=== PATIENT | male | born 1990 | race African-American/Black ===

== ENCOUNTER 2018-01-06 21:10 | Emergency (ER) | payer OTHER, MEDICAID ==
--- NOTE | 2018-01-06 22:30 | RADIOLOGY REPORT (SQ) ---
EXAM DESCRIPTION: WRIST RIGHT 3 VIEWS COMPLETED DATE/TIME: 01/06/2018 10:16 pm REASON FOR STUDY: pain x 2 months, no injury COMPARISON: None. NUMBER OF VIEWS: Three views. TECHNIQUE: AP, lateral, and oblique radiographic images acquired of the right wrist. LIMITATIONS: None. FINDINGS: MINERALIZATION: Normal. BONES: No acute fracture or dislocation. No worrisome bone lesions. Normal alignment. No significant osteophytes. JOINTS: No erosions. No lory-articular osteopenia. No chondrocalcinosis. SOFT TISSUES: No swelling. No calcifications. OTHER: No other significant finding. IMPRESSION: NEGATIVE STUDY OF THE RIGHT WRIST. NO EXPLANATION FOR PAIN. TECHNICAL DOCUMENTATION: JOB ID: [id number] [employer]- All Rights Reserved Reading location - IP/workstation name: [email or web address]
--- NOTE | 2018-01-06 22:45 | ER Document Report ---
ED Hand/Wrist Injury - General Chief Complaint: Wrist Pain Stated Complaint: SWOLLEN WRIST Time Seen by Provider: 01/06/18 22:01 Mode of Arrival: Ambulatory Information source: Patient TRAVEL OUTSIDE OF THE [place] IN LAST 30 DAYS: No - HPI Patient complains to provider of: right wrist pain Notes: Patient is here with complaints of right wrist pain for the last 2 months. States that the pain is worse with movement. Specifically when he flexes and extends his wrist. He denies any trauma or fall. He denies any numbness, tingling, weakness. He denies any fever. He denies any nausea, vomiting, diarrhea. No rash. He denies any specific repetitive movements. He denies any other complaints at this time. - Related Data Allergies/Adverse Reactions: No Known Allergies Allergy (Verified 11/04/15 17:22) Past Medical History - Social History Smoking Status: Unknown if Ever Smoked Family History: Arthritis, DM, Hypertension Musculoskeltal Medical History: Reports Hx Arthritis, Reports Hx Musculoskeletal Trauma Past Surgical History: Reports: Hx Orthopedic Surgery - Right knee medial meniscus repair/trimming - Immunizations Hx Diphtheria, Pertussis, Tetanus Vaccination: Yes Review of Systems - Review of Systems -: Yes All other systems reviewed and negative Physical Exam - Vital signs Vitals: Temp Pulse Resp BP Pulse Ox 98.0 F 88 20 168/97 H 93 01/06/18 21:31 01/06/18 21:31 01/06/18 21:31 01/06/18 21:31 01/06/18 21:31 - Notes Notes: GENERAL: alert, cooperative, nontoxic, no distress. HEAD: normocephalic, atraumatic EYES: conjunctiva pink without discharge, no external redness or swelling. EARS: no external swelling, no external redness NOSE: atraumatic, no external swelling MOUTH/THROAT: mucous membranes moist and pink NECK: soft, supple, full range of motion, no meningismus. CHEST: no distress, lungs clear and equal throughout. No wheezing, rales, rhonchi. CARDIAC: regular rate and rhythm, no murmur, normal capillary refill, normal pulses. BACK: full range of motion, no CVA tenderness. EXTREMITIES: Tenderness to the right distal radius with mild swelling noted over this area. The area is not red or hot to the touch. The patient has full range of motion of the wrist but with pain. Normal pulse and sensation. Normal cap refill. Full range of motion of the hand and fingers. Elbow exam is unremarkable. Compartments are soft. NEURO: alert and oriented 3, no focal deficits, full range of motion of all extremities. PYSCH: appropriate mood, affect. Patient is cooperative. SKIN: pink, warm, dry, no rash. Course - Re-evaluation Re-evalutation: 01/06/18 22:42 Patient is nontoxic appearing with stable vitals. Here with complaints of right wrist pain for the last 2 months. He is noted to have some mild swelling to the distal radius with tenderness along this area. It is not red or hot to the touch and he is not running a fever. There is no sign of infection. X-ray of the right wrist shows no acute bony abnormality. Patient's complaints and exam are consistent with tendinitis. This point the patient will be placed in a cock-up splint. He is already taking Naprosyn. Since the Naprosyn is not working, I have told him to stop taking the Naprosyn and we will switch him to Mobic to see if this helps with his pain and inflammation. He is instructed to wear the splint as needed for comfort. Rest, ice, elevate the wrist. Follow- up with orthopedics due to the chronicity of his pain. Follow-up sooner for increasing pain, fever, redness, numbness, tingling, weakness, any further concerns. The patient is noted to have elevated blood pressure during today's emergency department visit. The patient was informed of this finding. The patient was instructed that this may be related to pre-hypertension and requires further evaluation with a primary care provider. The patient has no hypertensive symptoms at this time. The patient's emergency department workup and current diagnosis were explained to the patient and or family. Follow-up instructions were provided. Medications if prescribed were discussed. Instructions for when to return to the emergency department including specific worrisome symptoms were discussed with the patient and/or family. - Vital Signs Vital signs: Temp Pulse Resp BP Pulse Ox 98.0 F 88 20 168/97 H 93 01/06/18 21:31 01/06/18 21:31 01/06/18 21:31 01/06/18 21:31 01/06/18 21:31 - Diagnostic Test Radiology reviewed: Image reviewed, Reports reviewed - Wrist with no acute abnormality Procedures - Immobilization right Wrist Pre-Proc Neuro Vasc Exam: Normal Immobilizer type: Cock-up Performed by: RN Post-Proc Neuro Vasc Exam: Normal Alignment checked and good: Yes Discharge - Discharge Clinical Impression: Right wrist tendonitis Condition: Stable Disposition: HOME, SELF-CARE Instructions: Tendonitis ([facility]) Additional Instructions: Take medications as prescribed. Stop taking her naproxen. Follow-up with orthopedics or your family doctor at the next available appointment. Follow-up sooner for worsening pain, fever, redness, numbness, tingling, weakness, any further concerns. Apply ice to the sore area and wear splint as needed for comfort. Your blood pressure was elevated during today's visit. Have this rechecked with your doctor. Prescriptions: Meloxicam 7.5 mg PO DAILY #15 tablet Forms: Elevated Blood Pressure, Smoking Cessation Education Referrals: MILKA MÁRQUEZ MD [ACTIVE STAFF] - Follow up as needed
[2018-01-06] MEDS ORDERED: IBUPROFEN 600 MG TABLET PO ONE (22:55)
[2018-01-06 23:05] VITALS: BP 142/85
== END 2018-01-06 23:07 | disposition home or self-care (01) ==
LOC: ER 21:10
DX: M77.9 Enthesopathy, unspecified (principal); M25.531 Pain in right wrist; M79.89 Other specified soft tissue disorders
CPT/HCPCS: 99283; 73110; L3908

== ENCOUNTER 2018-01-20 00:12 | Emergency (ER) | payer OTHER, MEDICAID ==
[2018-01-20] MEDS ORDERED: IPRATROPIUM/ALBUTEROL 0.5-2.5 MG/3 ML AMPUL NEB ONE (01:31)
[2018-01-20] MEDS ORDERED: DEXAMETHASONE SOD PHOS INJ 10 MG/1 ML VIAL IM ONE (01:31)
--- NOTE | 2018-01-20 01:34 | ER Document Report ---
HPI - HPI Pain Level: 3 Notes: Patient is a 27-year-old male with a history of depression who presents to the ED complaining of a dry semi-productive cough, nasal congestion/discharge, intermittent fever 3 weeks. Patient states that he is still eating and drinking without any difficulties. He is urinating normally and having normal bowel movements. He has tried some jvws-ojf-bojkvxo meds with minimal relief. Patient states that he does feel wheezy and does have some associated shortness of breath. He denies any drug allergies, smoking, IV drug use. Denies any prolonged immobilization, recent surgery/trauma, previous DVT/PE, cancer, or hormone use. He has no other concerns or complaints at this time. Denies any headache, fever, neck pain, sore throat, chest pain, palpitations, syncope, abdominal pain, nausea/vomiting/diarrhea, urinary retention, dysuria, hematuria , back pain, or rash. - ROS Systems Reviewed and Negative: Yes All other systems reviewed and negative Past Medical History - Social History Smoking Status: Never Smoker Family History: Arthritis, DM, Hypertension Renal/ Medical History: Denies: Hx Peritoneal Dialysis Musculoskeltal Medical History: Reports Hx Arthritis, Reports Hx Musculoskeletal Trauma Past Surgical History: Reports: Hx Orthopedic Surgery - Right knee medial meniscus repair/trimming - Immunizations Hx Diphtheria, Pertussis, Tetanus Vaccination: Yes Vertical Provider Document - CONSTITUTIONAL Agree With Documented VS: Yes Notes: PHYSICAL EXAMINATION: GENERAL: Well-appearing, well-nourished and in no acute distress. A&Ox4. Answers questions appropriately. Moves comfortably w/o notable distress. Able to speak in complete sentences. HEAD: Atraumatic, normocephalic. EYES: Pupils equal round and reactive to light, extraocular movements intact, sclera anicteric, conjunctiva are normal. ENT: EAC clear b/l. TM's intact b/l without erythema, fluid, or perforation. Nares patent and with clear discharge. oropharynx no erythema without exudates. No tonsilar hypertrophy without erythema or exudate. No palatine shift. Uvula midline. No tongue protrusion. No drooling, hoarseness, or airway compromise. Moist mucous membranes. No sinus tenderness. NECK: Normal range of motion, supple without lymphadenopathy. No rigidity/ meningismus. LUNGS: Dec breath sounds b/l with scant wheezing. No retractions HEART: Regular rate and rhythm without murmurs, rubs, gallops. ABDOMEN: Soft, nontender, nondistended abdomen. No guarding, no rebound. No masses appreciated. Normal bowel sounds present. No CVA tenderness bilaterally. Ext: prema neg b/l. no calf erythema/asymmetry/tenderness. NEUROLOGICAL: Normal speech, normal gait. Normal sensory, motor exams PSYCH: Normal mood, normal affect. SKIN: Warm, Dry, normal turgor, no rashes or lesions noted. - INFECTION CONTROL TRAVEL OUTSIDE OF THE [place] IN LAST 30 DAYS: No Course - Re-evaluation Re-evalutation: 01/20/18 02:40 Patient is an afebrile, well-hydrated, 27-year-old male who presents to the ED with a left basilar pneumonia. Vitals are acceptable. PE is otherwise unremarkable. See chest x-ray result. Patient was given DuoNeb, alb inhaler, and Decadron as well as his first dose of Levaquin. No other labs or imaging warranted at this time based on H&P. Patient was ambulated and O2 saturation touched 88% for 1-2 seconds then came back up to low 94% on RA. Pt maintained in the low 90's on RA during the rest of the test, and when he got back to the room came back up to 94%. Pt does also touch 95-96% as well. Pt states that he feels better than when he first arrived. He tells me that he only has 1 vehicle between him and his and he does not want to be admitted. Risks/ benefits reviewed with the patient including hypoxia and resp compromise for outpatient vs inpatient and he agrees to monitor symptoms closely and return with any worsening symptoms. Low suspicion for any ACS, PE, pneumothorax, pericarditis, dissection, respiratory compromise, severe dehydration, sepsis, meningitis, or other systemic emergent condition at this time. Patient is aware that his condition can change from initial presentation and he needs to monitor symptoms closely and seek medical attention for any acute changes. Recommend conservative measures for symptoms. Recheck with your PCM in 3-5 days. Return to the ED with any worsening/concerning symptoms otherwise as reviewed in discharge. Patient is in agreement. - Vital Signs Vital signs: Temp Pulse Resp BP Pulse Ox 98.9 F 99 18 139/85 H 92 01/20/18 00:22 01/20/18 00:22 01/20/18 00:22 01/20/18 00:22 01/20/18 00:22 Discharge - Discharge Clinical Impression: Pneumonia Qualifiers: Pneumonia type: due to unspecified organism Laterality: left Lung location: lower lobe of lung Qualified Code(s): J18.1 - Lobar pneumonia, unspecified organism Condition: Stable Disposition: HOME, SELF-CARE Instructions: Pneumonia ([facility]) Additional Instructions: Maintain adequate fluid intake Take meds as directed tylenol/ibuprofen as needed over the counter cold medication as needed for symptoms Humidified air may help Wash your hands regularly Wear a mask when coughing Monitor symptoms closely for any acute changes as reviewed and if noticing anything worsening to come back to the ED or seek medical attention. F/u: with your PCM in 3-5 days for a recheck Return to the ED with any fever, worsening pain, chest pain, palpitations, syncope, worsening BLACK, neck pain/stiffness, shortness of breath, wheezing, drooling, trouble swallowing/breathing, abdominal pain, n/v/d, rash, or worsening/concerning symptoms otherwise. Prescriptions: Albuterol Sulfate [Proair HFA Inhalation Aerosol 8.5 gm MDI] 1 - 2 puff IH Q4H PRN #1 mdi PRN Reason: Levofloxacin [Levaquin 750 mg Tablet] 750 mg PO DAILY #4 tablet Forms: Elevated Blood Pressure Referrals: [facility] [Provider Group] - Follow up in 3-5 days
--- NOTE | 2018-01-20 01:39 | RADIOLOGY REPORT (SQ) ---
EXAM DESCRIPTION: CHEST 2 VIEWS CLINICAL HISTORY: cough COMPARISON: 11/13/2013 FINDINGS: Frontal and lateral views of the chest. The cardiomediastinal silhouette has normal size and contour. Patchy left basilar airspace opacity. No pneumothorax. No definite pleural effusion. No displaced rib fractures identified. Upper abdominal soft tissues are unremarkable. IMPRESSION: 1. Patchy left basilar airspace opacity likely representing pneumonia.
[2018-01-20] MEDS ORDERED: LEVOFLOXACIN 750 MG TABLET PO ONE (01:47)
[2018-01-20] MEDS ORDERED: ALBUTEROL SULFATE 0.083% NEB 2.5 MG/3 ML AMPUL NEB ONE (02:09)
[2018-01-20 03:12] VITALS: BP 134/80
== END 2018-01-20 03:12 | disposition home or self-care (01) ==
LOC: ER 00:12
DX: J18.1 Lobar pneumonia, unspecified organism (principal); R05 Cough; R09.81 Nasal congestion; R09.89 Other specified symptoms and signs involving the circulatory and respiratory systems; R50.9 Fever, unspecified; R06.02 Shortness of breath; R06.2 Wheezing
CPT/HCPCS: 94640 ×2; 99283; 96372; 71046; J1100; J7620

== ENCOUNTER 2018-02-06 13:34 | Inpatient (IN) | payer OTHER, MEDICAID ==
[2018-02-06] MEDS ORDERED: ACETAMINOPHEN 325 MG TABLET PO ONE (13:38)
--- NOTE | 2018-02-06 14:18 | RADIOLOGY REPORT (SQ) ---
EXAM DESCRIPTION: CHEST 2 VIEWS COMPLETED DATE/TIME: 02/06/2018 2:04 pm REASON FOR STUDY: cough x 3 months COMPARISON: 01/20/2018 EXAM PARAMETERS: NUMBER OF VIEWS: two views TECHNIQUE: Digital Frontal and Lateral radiographic views of the chest acquired. RADIATION DOSE: NA LIMITATIONS: none FINDINGS: LUNGS AND PLEURA: Persistent subsegmental airspace disease in the left lower lobe. No eff usions. MEDIASTINUM AND HILAR STRUCTURES: No masses or contour abnormalities. HEART AND VASCULAR STRUCTURES: Heart normal size. No evidence for failure. BONES: No acute findings. HARDWARE: None in the chest. OTHER: No other significant finding. IMPRESSION: Persistent versus recurrent pneumonia left lower lobe. TECHNICAL DOCUMENTATION: JOB ID: [id number] [employer]- All Rights Reserved Reading location - IP/workstation name: [email or web address]
--- NOTE | 2018-02-06 14:18 | RADIOLOGY REPORT (SQ) ---
EXAM DESCRIPTION: WRIST RIGHT 3 VIEWS COMPLETED DATE/TIME: 02/06/2018 2:04 pm REASON FOR STUDY: pain COMPARISON: None. NUMBER OF VIEWS: Three views. TECHNIQUE: AP, lateral, and oblique radiographic images acquired of the right wrist. LIMITATIONS: None. FINDINGS: MINERALIZATION: Normal. BONES: No acute fracture or dislocation. No worrisome bone lesions. Normal alignment. SOFT TISSUES: No soft tissue swelling. No foreign body. OTHER: No other significant finding. IMPRESSION: NEGATIVE STUDY OF THE RIGHT WRIST. NO RADIOGRAPHIC EVIDENCE OF ACUTE INJURY. TECHNICAL DOCUMENTATION: JOB ID: [id number] [employer]- All Rights Reserved Reading location - IP/workstation name: [email or web address]
[2018-02-06] MEDS ORDERED: AZITHROMYCIN INJ 500 MG VIAL IV ONE (14:35)
[2018-02-06] MEDS ORDERED: CEFTRIAXONE INJ 1000 MG VIAL IV ONE (14:35)
[2018-02-06] MEDS ORDERED: ALBUTEROL SULFATE 0.083% NEB 2.5 MG/3 ML AMPUL NEB ONE (14:43)
[2018-02-06] MEDS: NORMAL SALINE 1000 ML 1,000 ML IV PRN ×2 (16:08→16:54)
[2018-02-06 16:39] LABS: VENOUS BLOOD BASE EXCESS -0.4 mmol/L; VENOUS BLOOD HCO3 24.9 mmol/L (20-32); VENOUS BLOOD PCO2 43.3 mmHg (35-63); VENOUS BLOOD PH 7.38 (7.30-7.42)
[2018-02-06 16:40] LABS: ABSOLUTE EOSINOPHILS # (AUTO) 0.1 10^3/uL (0.0-0.6); ABSOLUTE LYMPHOCYTES (AUTO) 2.1 10^3/uL (0.5-4.7); ABSOLUTE MONOCYTES (AUTO) 0.9 10^3/uL (0.1-1.4); ABSOLUTE NEUT (AUTO) 12.7 10^3/uL (1.7-8.2); BASOPHILS % (AUTO) 0.3 % (0-2); EOSINOPHILS % (AUTO) 0.4 % (0-6); HEMATOCRIT 41.1 % (37.9-51.0); HEMOGLOBIN 14.3 g/dL (13.5-17.0); INTERNATIONAL RATION (INR) 1.03; LYMPHOCYTES % (AUTO) 13.4 % (13-45); MEAN CORPUSCULAR HEMOGLOBIN 26.9 pg (27.0-33.4); MEAN CORPUSCULAR HGB CONC 34.8 g/dL (32.0-36.0); MEAN CORPUSCULAR VOLUME 78 fl (80-97); MONOCYTES % (AUTO) 5.8 % (3-13); PLATELET COUNT 295 10^3/uL (150-450); PROTHROMBIN TIME 14.1 SEC (11.4-15.4); RED BLOOD COUNT 5.31 10^6/uL (4.35-5.55); RED CELL DISTRIBUTION WIDTH 14.7 % (11.5-14.0); SEGMENTED NEUTROPHILS % (AUTO) 80.1 % (42-78); TOTAL CELLS COUNTED % (AUTO) 100 %; WHITE BLOOD COUNT 15.9 10^3/uL (4.0-10.5)
[2018-02-06] MEDS ORDERED: NORMAL SALINE 1000 ML 1,000 ML IV PRN (16:56)
[2018-02-06 17:03] LABS: ALANINE AMINOTRANSFERASE 46 U/L (21-72); ALBUMIN 3.7 g/dL (3.5-5.0); ALKALINE PHOSPHATASE 76 U/L (38-126); ANION GAP 11 (5-19); ASPARTATE AMINO TRANSFERASE 34 U/L (17-59); BILIRUBIN,DIRECT 0.3 mg/dL (0.0-0.4); BILIRUBIN,TOTAL 0.9 mg/dL (0.2-1.3); BLOOD UREA NITROGEN 12 mg/dL (7-20); CALCIUM 9.5 mg/dL (8.4-10.2); CARBON DIOXIDE 27 mmol/L (22-30); CHLORIDE 103 mmol/L (98-107); GLUCOSE 91 mg/dL (75-110); POTASSIUM 4.2 mmol/L (3.6-5.0); SODIUM 141.1 mmol/L (137-145); TOTAL PROTEIN 6.9 g/dL (6.3-8.2)
[2018-02-06 17:33] LABS: APPEARANCE,URINE CLEAR; BILIRUBIN,URINE NEGATIVE (NEGATIVE); COLOR,URINE YELLOW; GLUCOSE, URINE NEGATIVE (NEGATIVE); KETONES,URINE NEGATIVE (NEGATIVE); LEUKOCYTE ESTERASE,URINE NEGATIVE (NEGATIVE); NITRITE,URINE NEGATIVE (NEGATIVE); PROTEIN,URINE NEGATIVE (NEGATIVE); URINE SPECIFIC GRAVITY 1.025
--- NOTE | 2018-02-06 17:33 | ER Document Report ---
ED General - General Chief Complaint: Painful Cough Stated Complaint: COUGH, CONGESTION Time Seen by Provider: 02/06/18 14:30 TRAVEL OUTSIDE OF THE [place] IN LAST 30 DAYS: No - HPI Patient complains to provider of: Cough Notes: Patient coming in for further evaluation of cough. Patient was seen and the ER at the end of December diagnosed with a left lower lobe pneumonia and started on Levaquin. Patient states he finished his Levaquin did feel better for approximate 20 448 hours however cough continued cough became worse over the last few days painful patient was noted in triage to be tachycardic febrile. Patient does have a history of sleep apnea. Denies any recent travel denies any nausea vomiting fevers chills chest pain when resting denies any abdominal pain. - Related Data Allergies/Adverse Reactions: No Known Allergies Allergy (Verified 02/06/18 13:34) Past Medical History - Social History Smoking Status: Never Smoker Chew tobacco use (# tins/day): No Frequency of alcohol use: Rare Drug Abuse: None Family History: Arthritis, DM, Hypertension Patient has suicidal ideation: No Patient has homicidal ideation: No Renal/ Medical History: Denies: Hx Peritoneal Dialysis Musculoskeltal Medical History: Reports Hx Arthritis, Reports Hx Musculoskeletal Trauma Psychiatric Medical History: Reports: Hx Depression Past Surgical History: Reports: Hx Orthopedic Surgery - Right knee medial meniscus repair/trimming - Immunizations Hx Diphtheria, Pertussis, Tetanus Vaccination: Yes Review of Systems - Review of Systems Constitutional: No symptoms reported EENT: No symptoms reported Cardiovascular: No symptoms reported Respiratory: Cough, Short of breath Gastrointestinal: No symptoms reported Genitourinary: No symptoms reported Male Genitourinary: No symptoms reported Musculoskeletal: No symptoms reported Skin: No symptoms reported Hematologic/Lymphatic: No symptoms reported Neurological/Psychological: No symptoms reported -: Yes All other systems reviewed and negative Physical Exam - Vital signs Vitals: Resp Pulse Ox 28 H 93 02/06/18 14:57 02/06/18 14:57 Interpretation: Tachypneic, Febrile - General General appearance: Alert. No: Appears well - Appears unwell - HEENT Head: Normocephalic, Atraumatic Eyes: Normal Pupils: PERRL - Respiratory Respiratory status: No respiratory distress Chest status: Nontender Breath sounds: Wheezing Chest palpation: Normal - Cardiovascular Rhythm: Regular, Tachycardia Heart sounds: Normal auscultation Murmur: No - Abdominal Inspection: Normal, Morbidly Obese Distension: No distension Bowel sounds: Normal Tenderness: Nontender Organomegaly: No organomegaly - Back Back: Normal, Nontender - Extremities General upper extremity: Normal inspection, Nontender, Normal color, Normal ROM , Normal temperature General lower extremity: Normal inspection, Nontender, Normal color, Normal ROM , Normal temperature, Normal weight bearing. No: Marshal's sign - Neurological Neuro grossly intact: Yes Cognition: Normal Orientation: AAOx4 [place] Coma Scale Eye Opening: Spontaneous Jose Coma Scale Verbal: Oriented Jose Coma Scale Motor: Obeys Commands [place] Coma Scale Total: 15 Speech: Normal Motor strength normal: LUE, RUE, LLE, RLE Sensory: Normal - Psychological Associated symptoms: Normal affect, Normal mood - Skin Skin Temperature: Warm Skin Moisture: Dry Skin Color: Normal Course - Re-evaluation Re-evalutation: 02/06/18 21:00 Chest x-ray laboratory findings are consistent with [place] or sepsis due to a left lower lobe pneumonia. The pneumonia on x-ray does look to be worse than previous previously the x-ray shows some patchy infiltrate now does little have a systolic consolidation. Patient was started on Rocephin and Zithromax vancomycin for broad coverage. Was given IV fluids. Patient was history of sleep apnea whenever he was does off the become very tachypneic therefore patient was placed on BiPAP. Patient's case was discussed with hospitalist will admit for further evaluation. - Vital Signs Vital signs: Temp Pulse Resp BP Pulse Ox 34 H 113/52 L 95 02/06/18 20:30 02/06/18 20:30 02/06/18 20:30 - Laboratory Result Diagrams: 02/06/18 15:50 02/06/18 15:50 Laboratory results interpreted by me: 02/06/18 02/06/18 15:50 15:50 WBC 15.9 H MCV 78 L MCH 26.9 L RDW 14.7 H Seg Neutrophils % 80.1 H Absolute Neutrophils 12.7 H Urine Urobilinogen 4.0 H Critical Care Note - Critical Care Note Total time excluding time spent on procedures (mins): 35 Comments: Multiple evaluation for patient with fever tachypnea tachycardia Discharge - Discharge Clinical Impression: Pneumonia failure outpatient treatment, Morbid obesity Acute respiratory failure Qualifiers: Respiratory failure complication: hypoxia Qualified Code(s): J96.01 - Acute respiratory failure with hypoxia Sepsis Qualifiers: Sepsis type: sepsis due to unspecified organism Qualified Code(s): A41.9 - Sepsis, unspecified organism Condition: Good Disposition: ADMITTED INPATIENT Admitting Provider: Hospitalist - [facility] Unit Admitted: [facility]
[2018-02-06] MEDS ORDERED: IPRATROPIUM/ALBUTEROL 0.5-2.5 MG/3 ML AMPUL NEB PRN (17:53)
[2018-02-06] MEDS ORDERED: ACETAMINOPHEN 325 MG TABLET PO PRN (17:53)
[2018-02-06] MEDS ORDERED: MAGNESIUM HYDROXIDE SUSP 30 ML UDCUP PO PRN (17:53)
[2018-02-06] MEDS ORDERED: ONDANSETRON HCL INJ/PF 4 MG/2 ML SDV IV PRN (17:53)
[2018-02-06] MEDS ORDERED: VANCOMYCIN HCL INJ 1000 MG VIAL IV ONE (17:55)
[2018-02-06] MEDS ORDERED: VANCOMYCIN HCL 0 MG in DEXTROSE 5%-WATER 250 ML IV NR (18:00)
[2018-02-06] MEDS ORDERED: GUAIFENESIN/D-METHORPHAN (200-20 MG) SYRUP 10 ML PO PRN (18:00)
--- NOTE | 2018-02-06 18:25 | PDOC H&P ---
History of Present Illness Admission Date/PCP: This patient presents to the emergency room with complaints of difficulty breathing and shortness of breath which has been going on progressively over the last week or so. Patient was actually treated for pneumonia according to his account and he looks like he was seen in the emergency room in December. He was given a 5 day course of Levaquin which patient said he completed. He was initially feeling better but said he started feeling bad again over the last couple of days and it gotten progressively worse and he presents now with the above complaints as well as fever and poor appetite. In the emergency room patient was found to be febrile as well as tachycardic and tachypneic. He is a septic. He was treated with Levaquin initially as outpatient and so his antibiotics have been changed to ceftriaxone, azithromycin as well as vancomycin for initial brought spectrum coverage however these should be de- escalated as appropriate. Patient is been placed on BiPAP due to his respiratory failure. Patient complains of: Difficulty breathing and shortness of breath as well as fever History of Present Illness: JAQUAN MADDOX is a 27 year old male who presents to the emergency room with complaints of difficulty breathing and shortness of breath which has been going on progressively over the last week or so. Patient was actually treated for pneumonia according to his account and he looks like he was seen in the emergency room in December. He was given a 5 day course of Levaquin which patient said he completed. He was initially feeling better but said he started feeling bad again over the last couple of days and it gotten progressively worse and he presents now with the above complaints as well as fever and poor appetite. In the emergency room patient was found to be febrile as well as tachycardic and tachypneic. He is a septic. He was treated with Levaquin initially as outpatient and so his antibiotics have been changed to ceftriaxone, azithromycin as well as vancomycin for initial brought spectrum coverage however these should be de-escalated as appropriate. Patient is been placed on BiPAP due to his respiratory failure. Past Medical History Pulmonary Medical History: Reports: Sleep Apnea Musculoskeltal Medical History: Reports: Arthritis Psychiatric Medical History: Reports: Depression Past Surgical History Past Surgical History: Reports: Orthopedic Surgery - Right knee medial meniscus repair/trimming Social History Information Source: Patient Lives with: Alone Smoking Status: Never Smoker Frequency of Alcohol Use: None Hx Recreational Drug Use: No - Advance Directive Resuscitation Status: Full Code Family History Family History: Arthritis, DM, Hypertension Parental Family History Reviewed: Yes Children Family History Reviewed: NA Sibling(s) Family History Reviewed.: NA Medication/Allergy Allergies/Adverse Reactions: No Known Allergies Allergy (Verified 02/06/18 13:34) Review of Systems Constitutional: PRESENT: chills, fever(s) Eyes: ABSENT: visual disturbances Ears: ABSENT: hearing changes Cardiovascular: ABSENT: chest pain Respiratory: PRESENT: cough, dyspnea Gastrointestinal: ABSENT: abdominal pain, constipation, diarrhea, hematemesis, hematochezia, nausea, vomiting Genitourinary: ABSENT: dysuria, hematuria Musculoskeletal: PRESENT: back pain Neurological: ABSENT: abnormal gait, abnormal speech, confusion, dizziness, focal weakness, syncope Psychiatric: ABSENT: anxiety, depression, homidical ideation, suicidal ideation Hematologic/Lymphatic: ABSENT: easy bleeding, easy bruising Physical Exam Vital Signs: Intake & Output 02/05/18 02/06/18 02/07/18 06:59 06:59 06:59 Weight 152 kg General appearance: PRESENT: morbidly obese, well-nourished Head exam: PRESENT: atraumatic, normocephalic Ear exam: PRESENT: normal external ear exam Mouth exam: PRESENT: tongue midline Neck exam: ABSENT: carotid bruit, JVD, lymphadenopathy, thyromegaly Respiratory exam: PRESENT: crackles, decreased breath sounds, rales - LLL, rhonchi, tachypnea. ABSENT: wheezes Cardiovascular exam: PRESENT: tachycardia GI/Abdominal exam: PRESENT: normal bowel sounds, soft. ABSENT: distended, guarding, mass, organolmegaly, rebound, tenderness Rectal exam: PRESENT: deferred Extremities exam: PRESENT: full ROM. ABSENT: calf tenderness, clubbing, pedal edema Musculoskeletal exam: PRESENT: ambulatory Neurological exam: PRESENT: alert, awake, oriented to person, oriented to place , oriented to time, oriented to situation Psychiatric exam: PRESENT: appropriate affect Results Laboratory Results: 02/06/18 15:50 02/06/18 15:50 02/06/18 02/06/18 02/06/18 15:50 15:50 15:50 WBC 15.9 H RBC 5.31 Hgb 14.3 Hct 41.1 MCV 78 L MCH 26.9 L MCHC 34.8 RDW 14.7 H Plt Count 295 Seg Neutrophils % 80.1 H Lymphocytes % 13.4 Monocytes % 5.8 Eosinophils % 0.4 Basophils % 0.3 Absolute Neutrophils 12.7 H Absolute Lymphocytes 2.1 Absolute Monocytes 0.9 Absolute Eosinophils 0.1 Absolute Basophils 0.0 VBG pH VBG pCO2 VBG HCO3 VBG Base Excess Sodium 141.1 Potassium 4.2 Chloride 103 Carbon Dioxide 27 Anion Gap 11 BUN 12 Creatinine 0.88 Est GFR ( Amer) > 60 Est GFR (Non-Af Amer) > 60 Glucose 91 Lactic Acid 1.3 Calcium 9.5 Total Bilirubin 0.9 AST 34 ALT 46 Alkaline Phosphatase 76 Total Protein 6.9 Albumin 3.7 Urine Color Urine Appearance Urine pH Ur Specific Bladen Urine Protein Urine Glucose (UA) Urine Ketones Urine Blood Urine Nitrite Ur Leukocyte Esterase Urine WBC (Auto) Urine RBC (Auto) 02/06/18 02/06/18 15:50 15:50 WBC RBC Hgb Hct MCV MCH MCHC RDW Plt Count Seg Neutrophils % Lymphocytes % Monocytes % Eosinophils % Basophils % Absolute Neutrophils Absolute Lymphocytes Absolute Monocytes Absolute Eosinophils Absolute Basophils VBG pH 7.38 VBG pCO2 43.3 VBG HCO3 24.9 VBG Base Excess -0.4 Sodium Potassium Chloride Carbon Dioxide Anion Gap BUN Creatinine Est GFR ( Amer) Est GFR (Non-Af Amer) Glucose Lactic Acid Calcium Total Bilirubin AST ALT Alkaline Phosphatase Total Protein Albumin Urine Color YELLOW Urine Appearance CLEAR Urine pH 6.0 Ur Specific Bladen 1.025 Urine Protein NEGATIVE Urine Glucose (UA) NEGATIVE Urine Ketones NEGATIVE Urine Blood NEGATIVE Urine Nitrite NEGATIVE Ur Leukocyte Esterase NEGATIVE Urine WBC (Auto) 2 Urine RBC (Auto) 1 Impressions: Chest X-Ray 02/06/18 13:40 IMPRESSION: Persistent versus recurrent pneumonia left lower lobe. Wrist X-Ray 02/06/18 13:40 IMPRESSION: NEGATIVE STUDY OF THE RIGHT WRIST. NO RADIOGRAPHIC EVIDENCE OF ACUTE INJURY. Assessment & Plan - Diagnosis (1) Sepsis Qualifiers: Sepsis type: sepsis due to unspecified organism Qualified Code(s): A41.9 - Sepsis, unspecified organism Is this a current diagnosis for this admission?: Yes Plan: Blood cultures have been obtained and patient started on triple empiric antibiotics. This can be de-escalated once culture results available. (2) Pneumonia Qualifiers: Laterality: left Lung location: lower lobe of lung Is this a current diagnosis for this admission?: Yes Plan: Patient was treated as outpatient with Levaquin with initial improvement but then recurrent pneumonia. Consideration for CT scan when patient more stable should be made. (3) Acute respiratory failure Qualifiers: Respiratory failure complication: hypoxia Qualified Code(s): J96.01 - Acute respiratory failure with hypoxia Is this a current diagnosis for this admission?: Yes Plan: Patient is tachypneic and although his oxygen is acceptable at rest it appears when he does sleep he becomes hypoxemic. Patient does have underlying sleep apnea. In fact he said he had been outfitted with his CPAP machine but is yet to use it. This point my suspicion for a venous thromboembolism is pretty low but this should be kept in mind given patient's comorbidities. (4) Morbid obesity Is this a current diagnosis for this admission?: Yes Plan: Weight loss encouraged - Time Time Spent: 50 to 70 Minutes Medications reviewed and adjusted accordingly: Yes Anticipated discharge: Home Within: within 72 hours - Inpatient Certification Based on my medical assessment, after consideration of the patient's comorbidities, presenting symptoms, or acuity I expect that the services needed warrant INPATIENT care.: Yes I certify that my determination is in accordance with my understanding of Medicare's requirements for reasonable and necessary INPATIENT services [42 CFR 412.3e].: Yes Medical Necessity: Need for IV Antibiotics, Risk of Complication if Not Cared For in Hospital - Plan Summary Plan Summary: Ptient placedon low dose Xarelto prophylactically
--- NOTE | 2018-02-06 19:28 | EKG REPORT ---
SEVERITY:- OTHERWISE NORMAL ECG - SINUS TACHYCARDIA BORDERLINE LEFT AXIS DEVIATION : Confirmed by: Zi Jacobs MD 06-Feb-2018 19:27:41
[2018-02-06] MEDS: RINGERS SOLUTION,LACTATED 1,000 ML IV PRN (19:48)
[2018-02-06] MEDS ORDERED: RIVAROXABAN 10 MG TABLET PO SCH (22:00)
[2018-02-06] MEDS: OXYCODONE-ACETAMINOPHEN 5-325 MG TABLET PO PRN (22:37)
[2018-02-06] MEDS: GUAIFENESIN 600 MG TABLET.SA PO SCH (22:37)
[2018-02-06] MEDS: FAMOTIDINE 20 MG TABLET PO SCH (22:37)
[2018-02-06] MEDS: HEPARIN SOD (PORCINE) 5,000 UNIT/ML 1 ML SYRINGE SUBCUT SCH (22:38)
[2018-02-07] MEDS: VANCOMYCIN HCL 1,500 MG in DEXTROSE 5%-WATER 250 ML IV SCH ×4 (00:11→18:24)
[2018-02-07] MEDS: OXYCODONE-ACETAMINOPHEN 5-325 MG TABLET PO PRN ×3 (04:41→22:05)
[2018-02-07 04:53] LABS: ABSOLUTE BASOPHILS # (AUTO) 0.1 10^3/uL (0.0-0.2); ABSOLUTE EOSINOPHILS # (AUTO) 0.1 10^3/uL (0.0-0.6); ABSOLUTE LYMPHOCYTES (AUTO) 3.3 10^3/uL (0.5-4.7); ABSOLUTE MONOCYTES (AUTO) 1.2 10^3/uL (0.1-1.4); ABSOLUTE NEUT (AUTO) 12.7 10^3/uL (1.7-8.2); BASOPHILS % (AUTO) 0.3 % (0-2); EOSINOPHILS % (AUTO) 0.4 % (0-6); HEMATOCRIT 36.4 % (37.9-51.0); HEMOGLOBIN 12.6 g/dL (13.5-17.0); LYMPHOCYTES % (AUTO) 19.2 % (13-45); MEAN CORPUSCULAR HEMOGLOBIN 26.7 pg (27.0-33.4); MEAN CORPUSCULAR HGB CONC 34.7 g/dL (32.0-36.0); MEAN CORPUSCULAR VOLUME 77 fl (80-97); PLATELET COUNT 248 10^3/uL (150-450); RED BLOOD COUNT 4.72 10^6/uL (4.35-5.55); SEGMENTED NEUTROPHILS % (AUTO) 73.1 % (42-78); TOTAL CELLS COUNTED % (AUTO) 100 %; WHITE BLOOD COUNT 17.4 10^3/uL (4.0-10.5)
[2018-02-07 05:12] LABS: ANION GAP 11 (5-19); BLOOD UREA NITROGEN 12 mg/dL (7-20); CALCIUM 8.6 mg/dL (8.4-10.2); CARBON DIOXIDE 27 mmol/L (22-30); CHLORIDE 104 mmol/L (98-107); GLUCOSE 118 mg/dL (75-110); POTASSIUM 3.9 mmol/L (3.6-5.0); SODIUM 141.5 mmol/L (137-145)
[2018-02-07] MEDS: RINGERS SOLUTION,LACTATED 1,000 ML IV PRN (05:59)
[2018-02-07] MEDS: HEPARIN SOD (PORCINE) 5,000 UNIT/ML 1 ML SYRINGE SUBCUT SCH ×3 (06:01→22:15)
[2018-02-07] MEDS ORDERED: CEFTRIAXONE 1 GM/D5W RTU 1 GM/50 ML RTUPB IV SCH (10:00)
[2018-02-07] MEDS ORDERED: AZITHROMYCIN 500 MG in DEXTROSE 5%-WATER 250 ML IV SCH (10:00)
[2018-02-07] MEDS ORDERED: CEFTRIAXONE SODIUM 1,000 MG in DEXTROSE 5%-WATER 50 ML IV SCH (10:00)
[2018-02-07] MEDS: FAMOTIDINE 20 MG TABLET PO SCH ×2 (10:17→22:15)
[2018-02-07] MEDS: GUAIFENESIN 600 MG TABLET.SA PO SCH ×2 (10:17→22:15)
--- NOTE | 2018-02-07 10:17 | RADIOLOGY REPORT (SQ) ---
EXAM DESCRIPTION: CTA CHEST COMPLETED DATE/TIME: 02/07/2018 9:48 am REASON FOR STUDY: pna, resp failure COMPARISON: None. TECHNIQUE: CT scan of the chest performed using helical scanning technique with dynamic intravenous contrast injection. Images reviewed with lung, soft tissue and bone windows. Reconstructed coronal and sagittal MPR images reviewed. Additional 3 dimensional post-processing performed to develop Maximal Intensity Projection images (MT P). All images stored on PACS. All CT scanners at this facility use dose modulation, iterative reconstruction, and/or weight based d osing when appropriate to reduce radiation dose to as low as reasonably achievable (ALARA). [facility]: Dose Right [facility]: CareDose [facility]: Dose Right [facility]: Teradose 4D [facility]: [employer] CONTRAST TYPE AND DOSE: contrast/concentration: Isovue 370.00 mg/ml; Total Contrast Delivered: 86.0 ml; Total Saline Delivered: 79.1 ml RENAL FUNCTION: BUN 12 creatinine 0.9 RADIATION DOSE: CT Rad equipment meets quality standard of care and radiation dose reduction techniq ues were employed. CTDIvol: 3.3 - 57.9 mGy. DLP: 1798 mGy-cm. . LIMITATIONS: Timing of contrast. FINDINGS: LUNGS AND PLEURA: Segmental airspace disease in the right lower lobe. Subsegmental airspa ce disease in the lingula and left lower lobe. No effusions. AORTA AND GREAT VESSELS: No aneurysm. Contrast bolus not optimized for the aorta. HEART: No pericardial effusion. No significant coronary artery calcifications. PULMONARY ARTERIES: No emboli visualized in the main pulmonary arteries. HILAR AND MEDIASTINAL STRUCTURES: No identified masses or abnormal nodes. HARDWARE: None in the chest. UPPER ABDOMEN: No significant findings. Limited exam. THYROID AND OTHER SOFT TISSUES: No masses. No adenopathy. BONES: No acute or significant finding. 3D MIPS: Confirm above findings. OTHER: No other significant finding. IMPRESSION: Bilateral pneumonia. No PE. COMMENT: Quality ID # [id number]: Final reports with documentation of one or more dose reduction techniques (e.g., Automated exposure control, adjustment of the mA and/or kV according to patient size, use of iterative reconstruction technique) TECHNICAL DOCUMENTATION: JOB ID: [id number] [employer]- All Rights Reserved Reading location - IP/workstation name: [facility]
--- NOTE | 2018-02-07 11:31 | PDOC PROGRESS REPORT ---
Subjective Progress Note for:: 02/07/18 Subjective:: The patient is a morbidly obese 27-year-old -[place] male who presented to the emergency room with increased shortness of breath. He had acute respiratory failure at the time of admission and had to be placed on BiPAP. He had failed outpatient treatment for an underlying pneumonia with Levaquin. He was admitted to the hospital and started on IV ceftriaxone, azithromycin as well as vancomycin. When I saw the patient today he had been weaned off of BiPAP and his oxygen saturations are stable on room air. He states that he continues to have quite a bit of cough cough with bronchospasm and coughed up some sputum this morning that was blood-tinged. He denies fever or shaking chills overnight. He does get quite short of breath especially when he gets up and tries to move around. He continues to have cough with bronchospasm. No nausea, vomiting or diarrhea. No abdominal pain. No dysuria, frequency or hematuria. Reason For Visit: ACUTE RESPIRATORY FAILURE,SEPSIS,LLL PNEUMONIA Physical Exam Vital Signs: Temp Pulse Resp BP Pulse Ox 98.0 F 84 18 121/81 94 02/07/18 08:25 02/07/18 08:25 02/07/18 08:25 02/07/18 08:25 02/07/18 08:25 Intake & Output 02/06/18 02/07/18 02/08/18 06:59 06:59 06:59 Intake Total 1980 Balance 1980 Weight 157.2 kg General appearance: PRESENT: no acute distress, well-developed, well-nourished Head exam: PRESENT: atraumatic, normocephalic Mouth exam: PRESENT: moist, tongue midline Respiratory exam: PRESENT: other - He has scattered coarse breath sounds.. ABSENT: accessory muscle use, chest wall tenderness Cardiovascular exam: PRESENT: tachycardia - Mildly tachycardic. ABSENT: diastolic murmur, rubs, systolic murmur GI/Abdominal exam: PRESENT: normal bowel sounds, soft, other - His abdomen is morbidly obese. I could not assess for organomegaly due to the patient's body habitus. ABSENT: distended, guarding, mass, rebound, tenderness Rectal exam: PRESENT: deferred Extremities exam: PRESENT: full ROM. ABSENT: calf tenderness, clubbing, pedal edema Musculoskeletal exam: PRESENT: ambulatory Neurological exam: PRESENT: alert, awake, oriented to person, oriented to place , oriented to time, oriented to situation, CN II-XII grossly intact. ABSENT: motor sensory deficit Psychiatric exam: PRESENT: appropriate affect, normal mood. ABSENT: homicidal ideation, suicidal ideation Skin exam: PRESENT: dry, intact, warm. ABSENT: cyanosis, rash Results Laboratory Results: 02/07/18 04:00 02/07/18 04:00 02/07/18 02/07/18 02/07/18 04:00 04:00 04:00 WBC 17.4 H RBC 4.72 Hgb 12.6 L Hct 36.4 L MCV 77 L MCH 26.7 L MCHC 34.7 RDW 15.0 H Plt Count 248 Seg Neutrophils % 73.1 Lymphocytes % 19.2 Monocytes % 7.0 Eosinophils % 0.4 Basophils % 0.3 Absolute Neutrophils 12.7 H Absolute Lymphocytes 3.3 Absolute Monocytes 1.2 Absolute Eosinophils 0.1 Absolute Basophils 0.1 Sodium 141.5 Potassium 3.9 Chloride 104 Carbon Dioxide 27 Anion Gap 11 BUN 12 Creatinine 0.94 Est GFR ( Amer) > 60 Est GFR (Non-Af Amer) > 60 Glucose 118 H Calcium 8.6 Phosphorus 4.4 02/07/18 04:00 NT-Pro-B Natriuret Pep 118 Impressions: Chest X-Ray 02/06/18 13:40 IMPRESSION: Persistent versus recurrent pneumonia left lower lobe. Wrist X-Ray 02/06/18 13:40 IMPRESSION: NEGATIVE STUDY OF THE RIGHT WRIST. NO RADIOGRAPHIC EVIDENCE OF ACUTE INJURY. Chest/Abdomen CTA 02/07/18 00:00 IMPRESSION: Bilateral pneumonia. No PE. Assessment & Plan - Diagnosis (1) Acute respiratory failure Qualifiers: Respiratory failure complication: hypoxia Qualified Code(s): J96.01 - Acute respiratory failure with hypoxia Is this a current diagnosis for this admission?: Yes Plan: The patient was initially requiring BiPAP support. His respiratory failure is due to his underlying pneumonia and exacerbated by his obstructive sleep apnea and morbid obesity. At this point he has been weaned off of BiPAP and is doing well. Therapy will be outlined below. (2) Sepsis Qualifiers: Sepsis type: sepsis due to unspecified organism Qualified Code(s): A41.9 - Sepsis, unspecified organism Is this a current diagnosis for this admission?: Yes Plan: Present on admission manifested by leukocytosis, high fever, tachypnea, tachycardia and evidence of pneumonia. Patient sepsis symptoms are improving with treatment. (3) Pneumonia Qualifiers: Laterality: left Lung location: lower lobe of lung Is this a current diagnosis for this admission?: Yes Plan: Sputum culture is growing gram-positive cocci as well as gram-negative rods. He has worsening leukocytosis today. At this point since he is failed outpatient treatment with Levaquin I will continue his IV vancomycin. This is day #2 of treatment. I will change his Rocephin to IV Zosyn to cover for Pseudomonas. This will be the first day of treatment with IV Zosyn. I will hold off on his Zithromax for now. We may need to add back atypical coverage but we will see how he does with these changes.I also will get the patient an incentive spirometer and flutter valve. Good pulmonary toilet going forward. (4) Morbid obesity Is this a current diagnosis for this admission?: Yes Plan: Dietary discretion is advised. Certainly his morbid obesity is not helping his respiratory status. (5) Anemia Is this a current diagnosis for this admission?: Yes Plan: Secondary to hemodilution. Stable. (6) Obstructive sleep apnea Is this a current diagnosis for this admission?: Yes Plan: I am not sure if he uses his CPAP at home. I will get respiratory therapy to see him and at the least give him oxygen at night. - Time Time Spent with patient: 25-34 minutes - Inpatient Certification Medical Necessity: Need for IV Antibiotics, Other - Inpatient hospitalization remains necessary. This young man failed outpatient treatment with p.o. Levaquin. He had acute respiratory failure requiring BiPAP support. We are needing to broaden his IV antibiotic coverage today. Timing of disposition will be determined by his clinical course.
[2018-02-07] MEDS: PIPERACILLIN SODIUM/TAZOBACTAM 3.375 GM in NORMAL SALINE 100 ML IV SCH ×3 (12:40→23:57)
--- NOTE | 2018-02-07 16:29 | Physician Advisory Note ---
Physician Advisor ProgressNote .: Pursuant to the plan for [facility], I have reviewed the medical record for this patient. Physician Advisor Statement: Please consider documenting, if you agree: 1. R.e. dx Ac Resp Failure: any increased work of breathing/accessory muscle use that supports this dx? - If just tachypnea, having O2 sats that don't go below 90% (or only go below 90% when asleep - which could be from his KEN), and no increased work of breathing evidenced to document, then may want to consider documenting "Ac Resp Failure was considered but ruled out". 2. r. e. dx PNA - please state "likely caused by " ("cx growing x" & "covering for y" do not sufficiently indicate attending truly thinks x or y is the cause, per rules coders have to follow) Thanks! CK
[2018-02-07 18:23] LABS: VANCOMYCIN,TROUGH 19.8 ug/mL (5.0-20.0)
[2018-02-08] MEDS: VANCOMYCIN HCL 1,500 MG in DEXTROSE 5%-WATER 250 ML IV SCH ×2 (01:43→09:28)
[2018-02-08] MEDS: RINGERS SOLUTION,LACTATED 1,000 ML IV PRN (01:44)
[2018-02-08] MEDS: HEPARIN SOD (PORCINE) 5,000 UNIT/ML 1 ML SYRINGE SUBCUT SCH (05:41)
[2018-02-08] MEDS: PIPERACILLIN SODIUM/TAZOBACTAM 3.375 GM in NORMAL SALINE 100 ML IV SCH ×2 (05:41→11:34)
[2018-02-08 07:28] LABS: ABSOLUTE EOSINOPHILS # (AUTO) 0.5 10^3/uL (0.0-0.6); ABSOLUTE LYMPHOCYTES (AUTO) 2.9 10^3/uL (0.5-4.7); ABSOLUTE MONOCYTES (AUTO) 0.9 10^3/uL (0.1-1.4); ABSOLUTE NEUT (AUTO) 6.5 10^3/uL (1.7-8.2); BASOPHILS % (AUTO) 0.4 % (0-2); EOSINOPHILS % (AUTO) 4.2 % (0-6); HEMATOCRIT 36.7 % (37.9-51.0); HEMOGLOBIN 12.9 g/dL (13.5-17.0); LYMPHOCYTES % (AUTO) 26.6 % (13-45); MEAN CORPUSCULAR HEMOGLOBIN 27.1 pg (27.0-33.4); MEAN CORPUSCULAR HGB CONC 35.1 g/dL (32.0-36.0); MEAN CORPUSCULAR VOLUME 77 fl (80-97); MONOCYTES % (AUTO) 8.4 % (3-13); PLATELET COUNT 250 10^3/uL (150-450); RED BLOOD COUNT 4.75 10^6/uL (4.35-5.55); RED CELL DISTRIBUTION WIDTH 14.8 % (11.5-14.0); SEGMENTED NEUTROPHILS % (AUTO) 60.4 % (42-78); TOTAL CELLS COUNTED % (AUTO) 100 %; WHITE BLOOD COUNT 10.8 10^3/uL (4.0-10.5)
[2018-02-08] MEDS: GUAIFENESIN 600 MG TABLET.SA PO SCH ×2 (09:28→21:58)
[2018-02-08] MEDS: FAMOTIDINE 20 MG TABLET PO SCH ×2 (09:28→21:58)
--- NOTE | 2018-02-08 11:50 | PDOC PROGRESS REPORT ---
Subjective Progress Note for:: 02/08/18 Subjective:: Patient feels better, less cough with improved breathing. Has to use CPAP nocturnally. No fevewr and still has occasional wheezing Reason For Visit: ACUTE RESPIRATORY FAILURE,SEPSIS,LLL PNEUMONIA Physical Exam Vital Signs: Temp Pulse Resp BP Pulse Ox 98.2 F 80 16 122/82 94 02/08/18 08:00 02/08/18 08:00 02/08/18 08:00 02/08/18 08:00 02/08/18 08:00 Intake & Output 02/07/18 02/08/18 02/09/18 06:59 06:59 06:59 Intake Total 1980 2296 Balance 1980 2296 Weight 157.2 kg 160 kg General appearance: PRESENT: no acute distress, morbidly obese Head exam: PRESENT: atraumatic, normocephalic Eye exam: PRESENT: conjunctiva pink, EOMI, PERRLA. ABSENT: scleral icterus Ear exam: PRESENT: normal external ear exam Neck exam: ABSENT: carotid bruit, JVD, lymphadenopathy, thyromegaly Respiratory exam: PRESENT: crackles, decreased breath sounds, unlabored, wheezes Cardiovascular exam: PRESENT: RRR. ABSENT: diastolic murmur, rubs, systolic murmur GI/Abdominal exam: PRESENT: normal bowel sounds, soft. ABSENT: distended, guarding, mass, organolmegaly, rebound, tenderness Rectal exam: PRESENT: deferred Neurological exam: PRESENT: alert, awake, oriented to person, oriented to place , oriented to time, oriented to situation, CN II-XII grossly intact. ABSENT: motor sensory deficit Psychiatric exam: PRESENT: appropriate affect Results Laboratory Results: 02/08/18 04:47 02/07/18 04:00 02/08/18 04:47 WBC 10.8 H RBC 4.75 Hgb 12.9 L Hct 36.7 L MCV 77 L MCH 27.1 MCHC 35.1 RDW 14.8 H Plt Count 250 Seg Neutrophils % 60.4 Lymphocytes % 26.6 Monocytes % 8.4 Eosinophils % 4.2 Basophils % 0.4 Absolute Neutrophils 6.5 Absolute Lymphocytes 2.9 Absolute Monocytes 0.9 Absolute Eosinophils 0.5 Absolute Basophils 0.0 02/07/18 04:00 NT-Pro-B Natriuret Pep 118 Impressions: Chest X-Ray 02/06/18 13:40 IMPRESSION: Persistent versus recurrent pneumonia left lower lobe. Wrist X-Ray 02/06/18 13:40 IMPRESSION: NEGATIVE STUDY OF THE RIGHT WRIST. NO RADIOGRAPHIC EVIDENCE OF ACUTE INJURY. Chest/Abdomen CTA 02/07/18 00:00 IMPRESSION: Bilateral pneumonia. No PE. Assessment & Plan - Diagnosis (1) Sepsis Qualifiers: Sepsis type: sepsis due to unspecified organism Qualified Code(s): A41.9 - Sepsis, unspecified organism Is this a current diagnosis for this admission?: Yes Plan: Resolved (2) Pneumonia Qualifiers: Pneumonia type: due to Pneumococcus Laterality: left Lung location: lower lobe of lung Qualified Code(s): J13 - Pneumonia due to Streptococcus pneumoniae Is this a current diagnosis for this admission?: Yes Plan: Cultures yielding strep Pneumonia. Antibiotics have been changed to Ceftriaxone as appropriate. Will ambulate, monitor overnight and possible dc in 1 to 2 days (3) Acute respiratory failure Qualifiers: Respiratory failure complication: hypoxia Qualified Code(s): J96.01 - Acute respiratory failure with hypoxia Is this a current diagnosis for this admission?: No Plan: Oxygenation on ambulation >92%. His hypoxemia likely secondary to KEN, obesity hypoventilation syndrome. (4) Morbid obesity Is this a current diagnosis for this admission?: Yes Plan: Weight loss encouraged - Time Time Spent with patient: 15-24 minutes Medications reviewed and adjusted accordingly: Yes Anticipated discharge: Home Within: within 48 hours - Inpatient Certification Based on my medical assessment, after consideration of the patient's comorbidities, presenting symptoms, or acuity I expect that the services needed warrant INPATIENT care.: Yes Medical Necessity: Significant Comorbidiites Make Outpatient Treatment Too Risky , Need for IV Antibiotics
[2018-02-08] MEDS: RIVAROXABAN 10 MG TABLET PO SCH (18:32)
[2018-02-08] MEDS: CEFTRIAXONE 2 GM/D5W RTU 2 GM/50 ML RTUPB IV SCH (18:33)
[2018-02-08 18:43] LABS: VANCOMYCIN,TROUGH 12.6 ug/mL (5.0-20.0)
[2018-02-08] MEDS: OXYCODONE-ACETAMINOPHEN 5-325 MG TABLET PO PRN (23:50)
[2018-02-09 05:03] LABS: ABSOLUTE EOSINOPHILS # (AUTO) 0.4 10^3/uL (0.0-0.6); ABSOLUTE LYMPHOCYTES (AUTO) 3.2 10^3/uL (0.5-4.7); ABSOLUTE MONOCYTES (AUTO) 0.8 10^3/uL (0.1-1.4); ABSOLUTE NEUT (AUTO) 3.6 10^3/uL (1.7-8.2); BASOPHILS % (AUTO) 0.4 % (0-2); EOSINOPHILS % (AUTO) 5.5 % (0-6); HEMATOCRIT 37.6 % (37.9-51.0); HEMOGLOBIN 12.9 g/dL (13.5-17.0); LYMPHOCYTES % (AUTO) 39.4 % (13-45); MEAN CORPUSCULAR HEMOGLOBIN 26.8 pg (27.0-33.4); MEAN CORPUSCULAR HGB CONC 34.4 g/dL (32.0-36.0); MEAN CORPUSCULAR VOLUME 78 fl (80-97); PLATELET COUNT 279 10^3/uL (150-450); RED BLOOD COUNT 4.83 10^6/uL (4.35-5.55); RED CELL DISTRIBUTION WIDTH 14.8 % (11.5-14.0); SEGMENTED NEUTROPHILS % (AUTO) 44.7 % (42-78); TOTAL CELLS COUNTED % (AUTO) 100 %; WHITE BLOOD COUNT 8.1 10^3/uL (4.0-10.5)
[2018-02-09] MEDS: FAMOTIDINE 20 MG TABLET PO SCH ×2 (09:21→22:05)
[2018-02-09] MEDS: GUAIFENESIN 600 MG TABLET.SA PO SCH ×2 (09:21→22:05)
--- NOTE | 2018-02-09 13:33 | PDOC PROGRESS REPORT ---
Subjective Progress Note for:: 02/09/18 Subjective:: Patient feels better, less cough with improved breathing. Has to use CPAP nocturnally. No fever and ambulatory Reason For Visit: ACUTE RESPIRATORY FAILURE,SEPSIS,LLL PNEUMONIA Physical Exam Vital Signs: Temp Pulse Resp BP Pulse Ox 98.9 F 54 L 20 124/63 92 02/09/18 11:58 02/09/18 11:58 02/09/18 11:58 02/09/18 11:58 02/09/18 11:58 Intake & Output 02/08/18 02/09/18 02/10/18 06:59 06:59 06:59 Intake Total 2297 3602 354 Balance 2297 3602 354 Weight 160 kg 157.2 kg 157.2 kg General appearance: PRESENT: no acute distress, morbidly obese, well-developed Head exam: PRESENT: atraumatic, normocephalic Eye exam: PRESENT: conjunctiva pink, PERRLA. ABSENT: scleral icterus Ear exam: PRESENT: normal external ear exam Mouth exam: PRESENT: moist, tongue midline Neck exam: ABSENT: carotid bruit, JVD, lymphadenopathy, thyromegaly Respiratory exam: PRESENT: crackles, decreased breath sounds. ABSENT: rales, rhonchi, wheezes Cardiovascular exam: PRESENT: RRR. ABSENT: diastolic murmur, rubs, systolic murmur GI/Abdominal exam: PRESENT: normal bowel sounds, soft. ABSENT: distended, guarding, mass, organolmegaly, rebound, tenderness Rectal exam: PRESENT: deferred Extremities exam: PRESENT: full ROM. ABSENT: calf tenderness, clubbing, pedal edema Neurological exam: PRESENT: alert, awake, oriented to person, oriented to place , oriented to time, oriented to situation, CN II-XII grossly intact. ABSENT: motor sensory deficit Psychiatric exam: PRESENT: appropriate affect, normal mood. ABSENT: homicidal ideation, suicidal ideation Skin exam: PRESENT: dry, intact, warm. ABSENT: cyanosis, rash Results Laboratory Results: 02/09/18 04:03 02/07/18 04:00 02/09/18 04:03 WBC 8.1 RBC 4.83 Hgb 12.9 L Hct 37.6 L MCV 78 L MCH 26.8 L MCHC 34.4 RDW 14.8 H Plt Count 279 Seg Neutrophils % 44.7 Lymphocytes % 39.4 Monocytes % 10.0 Eosinophils % 5.5 Basophils % 0.4 Absolute Neutrophils 3.6 Absolute Lymphocytes 3.2 Absolute Monocytes 0.8 Absolute Eosinophils 0.4 Absolute Basophils 0.0 02/07/18 04:00 NT-Pro-B Natriuret Pep 118 Impressions: Chest X-Ray 02/06/18 13:40 IMPRESSION: Persistent versus recurrent pneumonia left lower lobe. Wrist X-Ray 02/06/18 13:40 IMPRESSION: NEGATIVE STUDY OF THE RIGHT WRIST. NO RADIOGRAPHIC EVIDENCE OF ACUTE INJURY. Chest/Abdomen CTA 02/07/18 00:00 IMPRESSION: Bilateral pneumonia. No PE. Assessment & Plan - Diagnosis (1) Sepsis Qualifiers: Sepsis type: sepsis due to unspecified organism Qualified Code(s): A41.9 - Sepsis, unspecified organism Is this a current diagnosis for this admission?: Yes Plan: resolved (2) Pneumonia Qualifiers: Pneumonia type: due to Pneumococcus Laterality: left Lung location: lower lobe of lung Qualified Code(s): J13 - Pneumonia due to Streptococcus pneumoniae Is this a current diagnosis for this admission?: Yes Plan: Continue Ceftriaxone Anticipate Dc in am (3) Acute respiratory failure Qualifiers: Respiratory failure complication: hypoxia Qualified Code(s): J96.01 - Acute respiratory failure with hypoxia Is this a current diagnosis for this admission?: No Plan: Oxygenation on ambulation >92%. His hypoxemia likely secondary to KEN, obesity hypoventilation syndrome. Resume CPAP use as outpatient (4) Morbid obesity Is this a current diagnosis for this admission?: Yes Plan: Weight loss strongly encouraged - Time Time Spent with patient: 15-24 minutes Medications reviewed and adjusted accordingly: Yes Anticipated discharge: Home Within: within 24 hours - Inpatient Certification Based on my medical assessment, after consideration of the patient's comorbidities, presenting symptoms, or acuity I expect that the services needed warrant INPATIENT care.: Yes Medical Necessity: Need for IV Antibiotics, Risk of Complication if Not Cared For in Hospital
[2018-02-09] MEDS: RIVAROXABAN 10 MG TABLET PO SCH (17:01)
[2018-02-09] MEDS: CEFTRIAXONE 2 GM/D5W RTU 2 GM/50 ML RTUPB IV SCH (17:01)
[2018-02-10] MEDS: FAMOTIDINE 20 MG TABLET PO SCH (10:06)
[2018-02-10] MEDS: GUAIFENESIN 600 MG TABLET.SA PO SCH (10:06)
[2018-02-10] MEDS: CEFTRIAXONE 2 GM/D5W RTU 2 GM/50 ML RTUPB IV SCH (10:15)
[2018-02-10 10:52] VITALS: BP 120/75
--- NOTE | 2018-02-10 12:27 | PDOC DISCHARGE SUMMARY ---
General - Admit/Disc Date/PCP Admission Date/Primary Care Provider: 02/06/18 18:17 Discharge Date: 02/10/18 - Discharge Diagnosis (1) Sepsis Is this a current diagnosis for this admission?: Yes (2) Pneumonia Is this a current diagnosis for this admission?: Yes (3) Morbid obesity Is this a current diagnosis for this admission?: Yes (4) Obstructive sleep apnea Is this a current diagnosis for this admission?: Yes - Additional Information Resuscitation Status: Full Code Discharge Diet: Cardiac Discharge Activity: Activity As Tolerated Prescriptions: Cefuroxime Axetil [Ceftin 500 mg Tablet] 1 tab PO BID 7 Days #20 tablet Home Medications: Baclofen [Baclofen 10 mg Tablet] 10 mg PO Q12HP PRN 02/08/18 Naproxen [Naprosyn] 500 mg PO BID 02/08/18 Sertraline HCl [Zoloft 50 mg Tablet] 100 mg PO DAILY 02/08/18 Cefuroxime Axetil [Ceftin 500 mg Tablet] 1 tab PO BID 7 Days #20 tablet Guaifenesin [Mucinex Sr 600 mg Tablet.sa] 600 mg PO Q12 tablet.sa 02/10/18 History of Present Illness History of Present Illness: JAQUAN MADDOX is a 27 year old male who presents to the emergency room with complaints of difficulty breathing and shortness of breath which has been going on progressively over the last week or so. Patient was actually treated for pneumonia according to his account and he looks like he was seen in the emergency room in December. He was given a 5 day course of Levaquin which patient said he completed. He was initially feeling better but said he started feeling bad again over the last couple of days and it gotten progressively worse and he presents now with the above complaints as well as fever and poor appetite. In the emergency room patient was found to be febrile as well as tachycardic and tachypneic. He is a septic. He was treated with Levaquin initially as outpatient and so his antibiotics have been changed to ceftriaxone, azithromycin as well as vancomycin for initial brought spectrum coverage however these should be de-escalated as appropriate. Patient is been placed on BiPAP due to his respiratory failure. Hospital Course Hospital Course: He was treated with empiric broad-spectrum intravenous antibiotics and his sputum culture did not yield Streptococcus pneumonia. His antibiotic has since been streamlined and he was changed to oral antibiotic at discharge. Patient has progressively improved. Although he was hypoxemic initially on presentation this was felt to be secondary to his sleep apnea rather than acute pneumonia. He is advised to follow-up with his instruction to use his CPAP which was previously prescribed prior to admission. Patient has remained hemodynamically stable with no further interventions been planned he has been discharged home. Physical Exam Vital Signs: Temp Pulse Resp BP Pulse Ox 97.7 F 81 16 120/75 97 02/10/18 10:51 02/10/18 10:51 02/10/18 10:51 02/10/18 10:51 02/10/18 10:51 Intake & Output 02/09/18 02/10/18 02/11/18 06:59 06:59 06:59 Intake Total 3602 2016 354 Balance 3602 2016 354 Weight 157.2 kg 155.7 kg General appearance: PRESENT: no acute distress, morbidly obese, well-developed, well-nourished Head exam: PRESENT: atraumatic, normocephalic Eye exam: PRESENT: conjunctiva pink, PERRLA. ABSENT: scleral icterus Ear exam: PRESENT: normal external ear exam Mouth exam: PRESENT: moist, tongue midline Neck exam: ABSENT: carotid bruit, JVD, lymphadenopathy, thyromegaly Respiratory exam: PRESENT: clear to auscultation sonia, decreased breath sounds. ABSENT: rales, rhonchi, wheezes Cardiovascular exam: PRESENT: RRR. ABSENT: diastolic murmur, rubs, systolic murmur Pulses: PRESENT: normal dorsalis pedis pul Vascular exam: PRESENT: normal capillary refill GI/Abdominal exam: PRESENT: normal bowel sounds, soft. ABSENT: distended, guarding, mass, organolmegaly, rebound, tenderness Rectal exam: PRESENT: deferred Extremities exam: PRESENT: full ROM. ABSENT: calf tenderness, clubbing, pedal edema Neurological exam: PRESENT: alert, awake, oriented to person, oriented to place , oriented to time, oriented to situation, CN II-XII grossly intact. ABSENT: motor sensory deficit Psychiatric exam: PRESENT: appropriate affect. ABSENT: homicidal ideation, suicidal ideation Skin exam: PRESENT: dry, intact, warm. ABSENT: cyanosis, rash Results Laboratory Results: 02/09/18 04:03 02/07/18 04:00 02/07/18 04:00 NT-Pro-B Natriuret Pep 118 Impressions: Chest X-Ray 02/06/18 13:40 IMPRESSION: Persistent versus recurrent pneumonia left lower lobe. Wrist X-Ray 02/06/18 13:40 IMPRESSION: NEGATIVE STUDY OF THE RIGHT WRIST. NO RADIOGRAPHIC EVIDENCE OF ACUTE INJURY. Chest/Abdomen CTA 02/07/18 00:00 IMPRESSION: Bilateral pneumonia. No PE. Qualifiers - * PATIENT BEING DISCHARGED WITH ANY OF THE FOLLOWING DIAGNOSIS: No Plan Time Spent: Less than 30 Minutes
== END 2018-02-10 13:10 | disposition home or self-care (01) | DRG 871 ==
LOC: ER 13:34 → EH 18:17 → UNDOADMIN 18:17 → 3N 21:01
PROVIDERS: ADMIT Internal Medicine; ATTEND Internal Medicine
PROC: 5A09457 Assistance with Respiratory Ventilation, 24-96 Consecutive Hours, Continuous Positive Airway Pressure (ICD-10-PCS; principal; 2018-02-06)
DX: A41.9 Sepsis, unspecified organism (principal); J13 Pneumonia due to Streptococcus pneumoniae; Z68.43 Body mass index [BMI] 50.0-59.9, adult; E66.01 Morbid (severe) obesity due to excess calories; R09.02 Hypoxemia; F32.9 Major depressive disorder, single episode, unspecified; D64.9 Anemia, unspecified; M19.90 Unspecified osteoarthritis, unspecified site; G47.30 Sleep apnea, unspecified; Z83.3 Family history of diabetes mellitus; Z82.49 Family history of ischemic heart disease and other diseases of the circulatory system; Z82.61 Family history of arthritis
CPT/HCPCS: 36415; 71046; 71275; 80048; 80053; 80202; 81001; 82803; 82962; 83605; 83880; 84100; 85025; 85610; 87040; 87070; 87077; 87086; 87186; 87205; 93005; 93010; 94640; 94660; 96365; 96367; 99291; J0456; J0696; J1644; J2405; J2543; J3370; J7030; J7060; J7120

== ENCOUNTER 2018-09-18 17:08 | Emergency (ER) | payer OTHER ==
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
[2018-09-18] MEDS: NORMAL SALINE 1000 ML 1,000 ML IV PRN ×2 (17:53→19:22)
[2018-09-18 18:05] LABS: VENOUS BLOOD BASE EXCESS 1.4 mmol/L; VENOUS BLOOD HCO3 28.1 mmol/L (20-32); VENOUS BLOOD PH 7.35 (7.30-7.42)
--- NOTE | 2018-09-18 18:05 | RADIOLOGY REPORT (SQ) ---
EXAM DESCRIPTION: CHEST 2 VIEWS COMPLETED DATE/TIME: 09/18/2018 5:58 pm REASON FOR STUDY: SOB COMPARISON: 02/06/2018 EXAM PARAMETERS: NUMBER OF VIEWS: two views TECHNIQUE: Digital Frontal and Lateral radiographic views of the chest acquired. RADIATION DOSE: NA LIMITATIONS: none FINDINGS: LUNGS AND PLEURA: No opacities, masses or pneumothorax. No pleural effusion. MEDIASTINUM AND HILAR STRUCTURES: No masses or contour abnormalities. HEART AND VASCULAR STRUCTURES: Heart normal size. No evidence for failure. BONES: No acute findings. HARDWARE: None in the chest. OTHER: No other significant finding. IMPRESSION: NO ACUTE RADIOGRAPHIC FINDING IN THE CHEST. TECHNICAL DOCUMENTATION: JOB ID: [id number] [employer]- All Rights Reserved Reading location - IP/workstation name: [email or web address]
[2018-09-18 18:15] LABS: ABSOLUTE BASOPHILS # (AUTO) 0.1 10^3/uL (0.0-0.2); ABSOLUTE EOSINOPHILS # (AUTO) 0.2 10^3/uL (0.0-0.6); ABSOLUTE LYMPHOCYTES (AUTO) 2.9 10^3/uL (0.5-4.7); ABSOLUTE MONOCYTES (AUTO) 0.6 10^3/uL (0.1-1.4); ABSOLUTE NEUT (AUTO) 4.2 10^3/uL (1.7-8.2); BASOPHILS % (AUTO) 0.6 % (0-2); EOSINOPHILS % (AUTO) 2.3 % (0-6); HEMATOCRIT 42.8 % (37.9-51.0); HEMOGLOBIN 14.8 g/dL (13.5-17.0); LYMPHOCYTES % (AUTO) 36.3 % (13-45); MEAN CORPUSCULAR HEMOGLOBIN 26.9 pg (27.0-33.4); MEAN CORPUSCULAR HGB CONC 34.6 g/dL (32.0-36.0); MEAN CORPUSCULAR VOLUME 78 fl (80-97); MONOCYTES % (AUTO) 7.6 % (3-13); PLATELET COUNT 266 10^3/uL (150-450); RED BLOOD COUNT 5.51 10^6/uL (4.35-5.55); RED CELL DISTRIBUTION WIDTH 14.8 % (11.5-14.0); SEGMENTED NEUTROPHILS % (AUTO) 53.2 % (42-78); TOTAL CELLS COUNTED % (AUTO) 100 %; WHITE BLOOD COUNT 7.9 10^3/uL (4.0-10.5)
[2018-09-18 18:22] LABS: APPEARANCE,URINE CLEAR; BILIRUBIN,URINE NEGATIVE (NEGATIVE); COLOR,URINE STRAW; GLUCOSE, URINE >=500 mg/dL (NEGATIVE); KETONES,URINE 20 mg/dL (NEGATIVE); LEUKOCYTE ESTERASE,URINE NEGATIVE (NEGATIVE); NITRITE,URINE NEGATIVE (NEGATIVE); PROTEIN,URINE NEGATIVE (NEGATIVE); UROBILINOGEN,URINE NEGATIVE mg/dL (<2.0)
[2018-09-18 18:32] LABS: ALANINE AMINOTRANSFERASE 31 U/L (21-72); ALBUMIN 4.3 g/dL (3.5-5.0); ALKALINE PHOSPHATASE 101 U/L (38-126); ANION GAP 10 (5-19); ASPARTATE AMINO TRANSFERASE 35 U/L (17-59); BILIRUBIN,DIRECT 0.3 mg/dL (0.0-0.4); BILIRUBIN,TOTAL 0.7 mg/dL (0.2-1.3); BLOOD UREA NITROGEN 13 mg/dL (7-20); CALCIUM 9.9 mg/dL (8.4-10.2); CARBON DIOXIDE 28 mmol/L (22-30); CHLORIDE 99 mmol/L (98-107); POTASSIUM 4.5 mmol/L (3.6-5.0); SODIUM 136.9 mmol/L (137-145); TOTAL PROTEIN 7.7 g/dL (6.3-8.2)
[2018-09-18 18:43] LABS: GLUCOSE 484 mg/dL (75-110)
[2018-09-18] MEDS ORDERED: INSULIN REG, HUMAN 100 UNIT/ML 3 ML VIAL (PYX) IV ONE ×2 (19:01→20:50)
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
--- NOTE | 2018-09-18 19:25 | RADIOLOGY REPORT (SQ) ---
EXAM DESCRIPTION: CT HEAD WITHOUT COMPLETED DATE/TIME: 09/18/2018 7:14 pm REASON FOR STUDY: lethargy COMPARISON: None. TECHNIQUE: Axial images acquired through the brain without intravenous contrast. Images reviewed wi th bone, brain and subdural windows. Additional sagittal and coronal reconstructions were generated. Images stored on PACS. All CT scanners at this facility use dose modulation, iterative reconstruction, and/or weight based d osing when appropriate to reduce radiation dose to as low as reasonably achievable (ALARA). [facility]: Dose Right [facility]: CareDose [facility]: Dose Right [facility]: Teradose 4D [facility]: Smart [employer] RADIATION DOSE: CT Rad equipment meets quality standard of care and radiation dose reduction techniq ues were employed. CTDIvol: 53.2 mGy. DLP: 1017 mGy-cm. mGy. LIMITATIONS: None. FINDINGS: VENTRICLES: Normal size and contour. CEREBRUM: No masses. No hemorrhage. No midline shift. No evidence for acute infarction. Normal gra y/white matter differentiation. No areas of low density in the white matter. CEREBELLUM: No masses. No hemorrhage. No alteration of density. No evidence for acute infarction. EXTRAAXIAL SPACES: No fluid collections. No masses. ORBITS AND GLOBE: No intra- or extraconal masses. Normal contour of globe without masses. CALVARIUM: No fracture. PARANASAL SINUSES: No fluid or mucosal thickening. SOFT TISSUES: No mass or hematoma. OTHER: No other significant finding. IMPRESSION: NORMAL BRAIN CT WITHOUT CONTRAST. EVIDENCE OF ACUTE STROKE: NO. COMMENT: Quality ID # [id number]: Final reports with documentation of one or more dose reduction techniques (e.g., Automated exposure control, adjustment of the mA and/or kV according to patient size, use of iterative reconstruction technique) TECHNICAL DOCUMENTATION: JOB ID: [id number] [employer]- All Rights Reserved Reading location - IP/workstation name: [email or web address]
[2018-09-18] MEDS ORDERED: NORMAL SALINE 1000 ML 1,000 ML IV ONE (20:58)
[2018-09-18] MEDS ORDERED: METFORMIN HCL 500 MG TABLET PO ONE (22:59)
[2018-09-19 00:05] VITALS: BP 106/59
== END 2018-09-19 00:05 | disposition home or self-care (01) ==
LOC: ER 17:08
DX: E13.9 Other specified diabetes mellitus without complications (principal); G47.33 Obstructive sleep apnea (adult) (pediatric); G89.29 Other chronic pain; M54.9 Dorsalgia, unspecified
CPT/HCPCS: 99285; 96360; 96361; 36415; 82962; 85025; 80053; 81001; 83036; 82803; 71046; 70450; J1815; J7030

== ENCOUNTER 2019-03-05 23:27 | Emergency (ER) | payer MEDICAID, OTHER ==
[2019-03-06 00:14] VITALS: BP 154/98
[2019-03-06] MEDS ORDERED: KETOROLAC TROMETHAMINE 60 MG/2 ML SDV IM ONE (02:28)
--- NOTE | 2019-03-06 02:59 | ER Document Report ---
ED General - General Chief Complaint: Back Pain Stated Complaint: BACK PAIN Time Seen by Provider: 03/06/19 02:06 TRAVEL OUTSIDE OF THE [place] IN LAST 30 DAYS: No - HPI Notes: Patient is a 28-year-old male with a history of chronic back issues who presents to the emergency department for evaluation of an exacerbation of his back pain. He denies any injury. Denies any bowel or bladder incontinence, no saddle no focal numbness or weakness. He has pain underneath both of his shoulder blades and into his lower back as well. It does not radiate into his legs. His normal baclofen and Naprosyn are not helping. No fevers. - Related Data Allergies/Adverse Reactions: No Known Drug Allergies Allergy (Verified 09/18/18 17:18) orange juice Allergy (Verified 09/18/18 17:13) bees Allergy (Uncoded 09/18/18 17:13) Past Medical History - General Information source: Patient - Social History Smoking Status: Never Smoker Family History: Arthritis, DM, Hypertension Pulmonary Medical History: Reports: Hx Pneumonia, Hx Sleep Apnea Endocrine Medical History: Reports: Hx Diabetes Mellitus Type 2 Renal/ Medical History: Denies: Hx Peritoneal Dialysis Musculoskeletal Medical History: Reports Hx Arthritis, Reports Hx Musculoskeletal Trauma Psychiatric Medical History: Reports: Hx Depression Past Surgical History: Reports: Hx Orthopedic Surgery - Right knee medial meniscus repair/trimming - Immunizations Hx Diphtheria, Pertussis, Tetanus Vaccination: Yes Review of Systems - Review of Systems Constitutional: No symptoms reported EENT: No symptoms reported Cardiovascular: No symptoms reported Respiratory: No symptoms reported Gastrointestinal: No symptoms reported Genitourinary: No symptoms reported Musculoskeletal: See HPI Skin: No symptoms reported Neurological/Psychological: No symptoms reported Physical Exam - Vital signs Vitals: Temp Pulse Resp BP Pulse Ox 98.2 F 90 16 154/98 H 95 03/06/19 00:12 03/06/19 00:12 03/06/19 00:12 03/06/19 00:12 03/06/19 00:12 - Notes Notes: Pleasant 28-year-old male, appears stated age in no acute distress. He is actually sleeping comfortably when I enter the room. He falls asleep again in the middle of my interview. Vital signs reviewed, please refer to chart. Head is normocephalic, atraumatic. Pupils equal round, reactive to light. Neck is supple without meningismus. Heart is regular rate and rhythm. Lungs are clear to auscultation bilaterally. Abdomen is soft, nontender, normoactive bowel sounds throughout. Extremities without cyanosis, clubbing. Posterior calves are nontender. Examination of the spine yields no midline tenderness or step-off. Paraspinal musculature tenderness is noted from approximately T2-T5 bilaterally as well as the entire lumbar spine. Negative straight leg bilaterally. Patellar and Achilles reflexes are mildly diminished but symmetrical. Sensation is intact. Peripheral pulses are equal. Skin is warm and dry. Patient is awake, alert, neurological exam is nonfocal. Course - Re-evaluation Re-evalutation: 03/06/19 02:57 Patient presents to the emergency department for evaluation. He is complaining of an exacerbation of his chronic back pain, but he is resting comfortably. He is Ryley on anti-inflammatories and muscle relaxers. He was given an injection of IM Toradol here. I will send him home with a 2-day course of Flexeril to see if that helps. He is told to take that in place of his baclofen. He is to follow-up with primary care this week, return to the emergency department for worsening or new concerning symptoms. - Vital Signs Vital signs: Temp Pulse Resp BP Pulse Ox 98.2 F 90 16 154/98 H 95 03/06/19 00:12 03/06/19 00:12 03/06/19 00:12 03/06/19 00:12 03/06/19 00:12 Discharge - Discharge Clinical Impression: Acute exacerbation of chronic low back pain Condition: Stable Disposition: HOME, SELF-CARE Instructions: Low Back Pain ([facility]) Additional Instructions: Take the Flexeril as needed instead of your baclofen. Watch as this will cause drowsiness. Continue your Naprosyn as prescribed. Follow-up with your primary care physician this week. Return to the emergency department with worsening or new concerning symptoms.
== END 2019-03-06 03:37 | disposition home or self-care (01) ==
LOC: ER 23:27
DX: G89.29 Other chronic pain (principal); M54.5 Low back pain; E11.9 Type 2 diabetes mellitus without complications
CPT/HCPCS: 99283; 96372; J1885

== ENCOUNTER 2019-05-28 13:39 | Emergency (ER) | payer OTHER ==
[2019-05-28 13:49] VITALS: BP 142/98
--- NOTE | 2019-05-28 15:00 | ER Document Report ---
HPI - HPI Time Seen by Provider: 05/28/19 14:20 Pain Level: 4 Notes: Patient is a 29-year-old male presenting to the emergency department chief complaint of body aches, fever, left ear pain, sore throat and productive cough. Patient reports all symptoms started on . Patient denies any nausea, vomiting, diarrhea. Past Medical History - General Information source: Patient - Social History Smoking Status: Never Smoker Frequency of alcohol use: None Drug Abuse: None Family History: Arthritis, DM, Hypertension Pulmonary Medical History: Reports: Hx Pneumonia, Hx Sleep Apnea Endocrine Medical History: Reports: Hx Diabetes Mellitus Type 2 Renal/ Medical History: Denies: Hx Peritoneal Dialysis Musculoskeletal Medical History: Reports Hx Arthritis, Reports Hx Musculoskeletal Trauma Psychiatric Medical History: Reports: Hx Depression Past Surgical History: Reports: Hx Orthopedic Surgery - Right knee medial meniscus repair/trimming - Immunizations Hx Diphtheria, Pertussis, Tetanus Vaccination: Yes Vertical Provider Document - CONSTITUTIONAL Notes: PHYSICAL EXAMINATION: GENERAL: Well-appearing, well-nourished and in no acute distress. HEAD: Atraumatic, normocephalic. EYES: Pupils equal round extraocular movements intact, conjunctiva are normal. ENT: Nares patent, oropharynx clear without exudates or erythema. No tonsillar swelling noted. Left tympanic membrane bright red and bulging. NECK: Normal range of motion, mild cervical lymphadenopathy. LUNGS: No respiratory distress, lung sounds clear and equal bilaterally. Musculoskeletal: Normal range of motion NEUROLOGICAL: Normal speech, normal gait. PSYCH: Normal mood, normal affect. SKIN: Warm, Dry, normal turgor, no rashes or lesions noted. - INFECTION CONTROL TRAVEL OUTSIDE OF THE [place] IN LAST 30 DAYS: No Course - Re-evaluation Re-evalutation: Exam is consistent with acute otitis media. Patient will be started on appropriate medications and discharged home. Patient understands plan of care and has no questions. - Vital Signs Vital signs: Temp Pulse Resp BP Pulse Ox 98.6 F 86 20 142/98 H 92 05/28/19 13:47 05/28/19 13:47 05/28/19 13:47 05/28/19 13:47 05/28/19 13:47 Discharge - Discharge Clinical Impression: Upper respiratory infection Qualifiers: URI type: unspecified URI Qualified Code(s): J06.9 - Acute upper respiratory infection, unspecified Otitis media Qualifiers: Otitis media type: unspecified Chronicity: acute Qualified Code(s): H66.90 - Otitis media, unspecified, unspecified ear Condition: Stable Disposition: HOME, SELF-CARE Additional Instructions: You are seen in the emergency department today for your symptoms. Your physical exam does show that you have an acute ear infection on the left side. The amoxicillin that you are being started on for this may help with some of her other symptoms if they are being caused by a bacteria. Is very important to take all medications exactly as prescribed. Complete the entire course of antibiotics even if you are feeling better. Take Tylenol and/or ibuprofen for any body aches, pains or fever. Drink plenty of fluids. Prescriptions: Codeine Phosphate/Guaifenesin [Cheratussin AC Syrup] 10 ml PO QHS #120 ml Amoxicillin 1 tab PO TID #30 tab Forms: Special Work Note Referrals: EDYTA BUENO MD [Primary Care Provider] - Follow up as needed
== END 2019-05-28 15:05 | disposition home or self-care (01) ==
LOC: ER 13:39
DX: J06.9 Acute upper respiratory infection, unspecified (principal); H66.90 Otitis media, unspecified, unspecified ear; J02.9 Acute pharyngitis, unspecified; M79.10 Myalgia, unspecified site; E11.9 Type 2 diabetes mellitus without complications

== ENCOUNTER 2019-11-26 12:08 | Emergency (ER) | payer OTHER ==
[2019-11-26] MEDS ORDERED: ACETAMINOPHEN 325 MG TABLET PO ONE (12:24)
[2019-11-26] MEDS ORDERED: NORMAL SALINE 1000 ML 1,000 ML IV ONE ×2 (12:24→16:51)
[2019-11-26] MEDS ORDERED: IPRATROPIUM/ALBUTEROL 0.5-2.5 MG/3 ML AMPUL NEB ONE (12:24)
--- NOTE | 2019-11-26 12:27 | ER Document Report ---
ED Medical Screen (RME) - General Chief Complaint: Shortness Of Breath Stated Complaint: SORE THROAT Time Seen by Provider: 11/26/19 12:23 Primary Care Provider: EDYTA BUENO MD [Primary Care Provider] - Follow up as needed Notes: HPI: 29-year-old male presenting for evaluation of fever and shortness of breath today. Patient states his son was seen yesterday in the emergency department and he believes diagnosed with influenza. Patient began having fever and increasing shortness of breath with cough last night. States he has a history of type 2 diabetes and pneumonia. Today he woke up with a high fever and shortness of breath I have greeted and performed a rapid initial assessment of this patient. A comprehensive ED assessment and evaluation of the patient, analysis of test results and completion of the medical decision making process will be conducted by additional ED providers PHYSICAL EXAMINATION: GENERAL: Slightly ill-appearing, well-nourished and in moderate acute distress. HEAD: Atraumatic, normocephalic. EYES: sclera anicteric, conjunctiva are normal. ENT: Moist mucous membranes. NECK: Normal range of motion LUNGS: Normal work of breathing, decreased in all lung br[place], pulse oximetry 91% on room air mildly hypoxic HEART: 2+ radial pulses bilaterally, tachycardic ABD: limited by positioning for exam in triage. EXTREMITIES: no pitting or edema. No cyanosis. NEUROLOGICAL: No focal neurological deficits. Moves all extremities spontaneously and on command. PSYCH: Normal mood, normal affect. SKIN: Warm, Dry, normal turgor, no rashes or lesions noted. TRAVEL OUTSIDE OF THE [place] IN LAST 30 DAYS: No - Related Data Allergies/Adverse Reactions: No Known Drug Allergies Allergy (Verified 05/28/19 13:40) orange juice Allergy (Verified 05/28/19 13:40) bees Allergy (Uncoded 05/28/19 13:40) Past Medical History Pulmonary Medical History: Reports: Hx Pneumonia, Hx Sleep Apnea Endocrine Medical History: Reports: Hx Diabetes Mellitus Type 2 Renal/ Medical History: Denies: Hx Peritoneal Dialysis Musculoskeltal Medical History: Reports Hx Arthritis, Reports Hx Musculoskeletal Trauma Psychiatric Medical History: Reports: Hx Depression Past Surgical History: Reports: Hx Orthopedic Surgery - Right knee medial meniscus repair/trimming - Immunizations Hx Diphtheria, Pertussis, Tetanus Vaccination: Yes Physical Exam - Vital signs Vitals: Temp Pulse Resp BP Pulse Ox 102.1 F H 128 H 28 H 143/81 H 93 11/26/19 12:16 11/26/19 12:16 11/26/19 12:16 11/26/19 12:16 11/26/19 12:16 Course - Vital Signs Vital signs: Temp Pulse Resp BP Pulse Ox 102.1 F H 128 H 28 H 143/81 H 93 11/26/19 12:16 11/26/19 12:16 11/26/19 12:16 11/26/19 12:16 11/26/19 12:16 Doctor's Discharge - Discharge Referrals: EDYTA BUENO MD [Primary Care Provider] - Follow up as needed
[2019-11-26 12:51] LABS: ABSOLUTE BASOPHILS # (AUTO) 0.1 10^3/uL (0.0-0.2); ABSOLUTE EOSINOPHILS # (AUTO) 0.2 10^3/uL (0.0-0.6); ABSOLUTE LYMPHOCYTES (AUTO) 1.1 10^3/uL (0.5-4.7); ABSOLUTE MONOCYTES (AUTO) 0.8 10^3/uL (0.1-1.4); ABSOLUTE NEUT (AUTO) 7.5 10^3/uL (1.7-8.2); BASOPHILS % (AUTO) 0.5 % (0-2); EOSINOPHILS % (AUTO) 2.6 % (0-6); HEMATOCRIT 39.7 % (37.9-51.0); HEMOGLOBIN 14.1 g/dL (13.5-17.0); MEAN CORPUSCULAR HEMOGLOBIN 27.4 pg (27.0-33.4); MEAN CORPUSCULAR HGB CONC 35.6 g/dL (32.0-36.0); MEAN CORPUSCULAR VOLUME 77 fl (80-97); MONOCYTES % (AUTO) 8.2 % (3-13); PLATELET COUNT 261 10^3/uL (150-450); RED BLOOD COUNT 5.17 10^6/uL (4.35-5.55); RED CELL DISTRIBUTION WIDTH 13.7 % (11.5-14.0); SEGMENTED NEUTROPHILS % (AUTO) 77.7 % (42-78); TOTAL CELLS COUNTED % (AUTO) 100 %; WHITE BLOOD COUNT 9.7 10^3/uL (4.0-10.5)
[2019-11-26 13:06] LABS: A TYPE INFLUENZA AG NEGATIVE (NEGATIVE); B INFLUENZA AG NEGATIVE (NEGATIVE)
--- NOTE | 2019-11-26 13:06 | RADIOLOGY REPORT (SQ) ---
EXAM DESCRIPTION: CHEST 2 VIEWS COMPLETED DATE/TIME: 11/26/2019 12:52 pm REASON FOR STUDY: SOB fever COMPARISON: 09/18/2018. EXAM PARAMETERS: NUMBER OF VIEWS: two views TECHNIQUE: Digital Frontal and Lateral radiographic views of the chest acquired. RADIATION DOSE: NA LIMITATIONS: none FINDINGS: LUNGS AND PLEURA: No opacities, masses or pneumothorax. No pleural effusion. MEDIASTINUM AND HILAR STRUCTURES: No masses or contour abnormalities. HEART AND VASCULAR STRUCTURES: Heart normal size. No evidence for failure. BONES: No acute findings. HARDWARE: None in the chest. OTHER: No other significant finding. IMPRESSION: NO ACUTE RADIOGRAPHIC FINDING IN THE CHEST. TECHNICAL DOCUMENTATION: JOB ID: [id number] 2010 [email or web address]- All Rights Reserved Reading location - IP/workstation name: [facility]
[2019-11-26 13:13] LABS: ALKALINE PHOSPHATASE 79 U/L (38-126); ANION GAP 8 (5-19); ASPARTATE AMINO TRANSFERASE 31 U/L (17-59); BILIRUBIN,TOTAL 0.5 mg/dL (0.2-1.3); BLOOD UREA NITROGEN 14 mg/dL (7-20); CALCIUM 9.2 mg/dL (8.4-10.2); CARBON DIOXIDE 27 mmol/L (22-30); CHLORIDE 102 mmol/L (98-107); GLUCOSE 100 mg/dL (75-110); POTASSIUM 4.2 mmol/L (3.6-5.0); TOTAL PROTEIN 7.3 g/dL (6.3-8.2)
--- NOTE | 2019-11-26 13:37 | ER Document Report ---
ED General - General Chief Complaint: Shortness Of Breath Stated Complaint: SORE THROAT Time Seen by Provider: 11/26/19 12:23 Primary Care Provider: EDYTA BUENO MD [Primary Care Provider] - Follow up as needed TRAVEL OUTSIDE OF THE [place] IN LAST 30 DAYS: No - HPI Notes: Patient is a 29-year-old male with a history of type 2 diabetes who presents to the emergency department for evaluation. He developed a sore throat last night. He developed a fever, cough, shortness of breath today. He states he has had some pain intermittently in his chest. He describes it as sometimes sharp, but really cannot describe it further for me. He states it does hurt to cough. States his sugars have been running well. He denies any nausea or vomiting. Still urinating. He notes that his son was diagnosed with influenza here in the hospital, but he is unsure as to whether or not he actually had a flu swab. - Related Data Allergies/Adverse Reactions: No Known Drug Allergies Allergy (Verified 05/28/19 13:40) orange juice Allergy (Verified 05/28/19 13:40) bees Allergy (Uncoded 05/28/19 13:40) Home Medications: Metformin, bupropion, baclofen, diclofenac Past Medical History - General Information source: Patient - Social History Smoking Status: Never Smoker Family History: Arthritis, DM, Hypertension Patient has suicidal ideation: No Patient has homicidal ideation: No Pulmonary Medical History: Reports: Hx Pneumonia, Hx Sleep Apnea Endocrine Medical History: Reports: Hx Diabetes Mellitus Type 2 Renal/ Medical History: Denies: Hx Peritoneal Dialysis Musculoskeletal Medical History: Reports Hx Arthritis, Reports Hx Musculoskeletal Trauma Psychiatric Medical History: Reports: Hx Attention Deficit Hyperactivity Disorder Past Surgical History: Reports: Hx Orthopedic Surgery - Right knee medial meniscus repair/trimming - Immunizations Hx Diphtheria, Pertussis, Tetanus Vaccination: Yes Review of Systems - Review of Systems Constitutional: See HPI EENT: See HPI Cardiovascular: See HPI Respiratory: See HPI -: Yes All other systems reviewed and negative Physical Exam - Vital signs Vitals: Temp Pulse Resp BP Pulse Ox 102.1 F H 128 H 28 H 143/81 H 93 11/26/19 12:16 11/26/19 12:16 11/26/19 12:16 11/26/19 12:16 11/26/19 12:16 - Notes Notes: Vital signs reviewed, please refer to chart. Head is normocephalic, atraumatic. Pupils equal round, reactive to light. Neck is supple without meningismus. Heart is tachycardic with normal S1, S2. Lungs are clear to auscultation bilaterally. Abdomen is soft, nontender, normoactive bowel sounds throughout. Extremities without cyanosis, clubbing. Posterior calves are nontender. Pe ripheral pulses are equal. Skin is warm and dry. Patient is awake, alert, neurological exam is nonfocal. Course - Re-evaluation Re-evalutation: 11/26/19 13:37 Patient presents to the emergency department for evaluation. He is febrile, tachycardic. He is a diabetic. Given his recent influenza exposure, as well as the timing of his symptoms, certainly seems likely influenza is the culprit. Influenza swab was negative, however this does not rule that out is the etiology. Because of his significant tachycardia, I did add on a full septic work-up. Lactic acid, further IV fluids, urinalysis were ordered and pending at this time. Patient had been wheezing in triage, was given a DuoNeb with relief of this wheezing. At this point he is feeling improved. He is on a squeegee tender, currently heart rate is 112. We will continue to monitor. 11/26/19 14:56 Patient claims to be feeling somewhat improved, but his respiratory rate and heart rate remain elevated, despite his temperature coming down. He does have a family history of blood clots, although he cannot tell me more specifically what this history is. Given this history and his presentation, I am concerned about the possibility of a pulmonary embolus. CT angiogram of the chest is ordered. Patient is amenable to this plan. 11/26/19 19:06 CT scan failed to reveal any significant pulmonary emboli, but airspace disease was noted, consistent with pneumonia. Patient's heart rate remained very mildly elevated, but he has a BMI over 50. He was given IV fluids. His oxygen level is 95% on room air. He is given IV Rocephin here to cover for pneumonia, given oral Zithromax. We will send him home with a prescription for same as well as some albuterol. [facility], and voiced understanding to the fact that any worsening should prompt him to return immediately. - Vital Signs Vital signs: Temp Pulse Resp BP Pulse Ox 99.2 F 128 H 21 H 127/81 H 91 L 11/26/19 15:07 11/26/19 12:16 11/26/19 19:00 11/26/19 19:00 11/26/19 19:00 - Laboratory Result Diagrams: 11/26/19 12:28 11/26/19 12:28 Laboratory results interpreted by me: 11/26/19 11/26/19 12:28 15:00 MCV 77 L Lymph % (Auto) 11.0 L Urine Urobilinogen 2.0 H Urine Ascorbic Acid 40 H - Diagnostic Test Radiology reviewed: Reports reviewed Radiology results interpreted by me: 11/26/19 14:57 Chest X-Ray 11/26/19 12:24 IMPRESSION: NO ACUTE RADIOGRAPHIC FINDING IN THE CHEST. - EKG Interpretation by Me Additional EKG results interpreted by me: 11/26/19 13:38 Sinus tachycardia with a rate of 114 bpm. Left axis deviation. No acute ST changes concerning for ischemia fraction. No significant change compared to prior study Discharge - Discharge Clinical Impression: Pneumonia Qualifiers: Laterality: bilateral Lung location: lower lobe of lung Condition: Stable Disposition: HOME, SELF-CARE Instructions: Pneumonia ([facility]) Additional Instructions: Please take all the antibiotic as prescribed, starting tomorrow. Use albuterol inhaler, 2 puffs every 4-6 hours as needed for shortness of breath. [facility] If you develop worsening or new concerning symptoms of any sort, please return immediately to the emergency department for evaluation. Forms: Return to Work Referrals: EDYTA BUENO MD [Primary Care Provider] - Follow up as needed
[2019-11-26] MEDS: NORMAL SALINE 1000 ML 1,000 ML IV PRN ×2 (14:01→15:04)
[2019-11-26 15:27] LABS: APPEARANCE,URINE CLEAR; BILIRUBIN,URINE NEGATIVE (NEGATIVE); COLOR,URINE YELLOW; GLUCOSE, URINE NEGATIVE (NEGATIVE); KETONES,URINE NEGATIVE (NEGATIVE); LEUKOCYTE ESTERASE,URINE NEGATIVE (NEGATIVE); NITRITE,URINE NEGATIVE (NEGATIVE); PROTEIN,URINE NEGATIVE (NEGATIVE); URINE SPECIFIC GRAVITY 1.023
--- NOTE | 2019-11-26 16:01 | RADIOLOGY REPORT (SQ) ---
EXAM DESCRIPTION: CTA CHEST COMPLETED DATE/TIME: 11/26/2019 3:24 pm REASON FOR STUDY: tachypnea, tachycardia, eval for PE COMPARISON: 02/07/2018 TECHNIQUE: CT scan of the chest performed using helical scanning technique with dynamic intravenous contrast injection. Images reviewed with lung, soft tissue and bone windows. Reconstructed coronal and sagittal MPR images reviewed. Additional 3 dimensional post-processing performed to develop Maximal Intensity Projection images (CA P). All images stored on PACS. All CT scanners at this facility use dose modulation, iterative reconstruction, and/or weight based d osing when appropriate to reduce radiation dose to as low as reasonably achievable (ALARA). [facility]: Dose Right [facility]: CareDose [facility]: Dose Right [facility]: Teradose 4D [facility]: Abaxia CONTRAST TYPE AND DOSE: contrast/concentration: Isovue 350.00 mg/ml; Total Contrast Delivered: 74.0 ml; Total Saline Delivered: 56.5 ml Contrast bolus not optimized for the pulmonary arteries. RENAL FUNCTION: GFR > 60. RADIATION DOSE: CT Rad equipment meets quality standard of care and radiation dose reduction techniq ues were employed. CTDIvol: 26.4 - 41.8 mGy. DLP: 1638 mGy-cm. . LIMITATIONS: None. FINDINGS: LUNGS AND PLEURA: No pneumothorax. No pleural effusions. Patchy airspace opacities are present in the both lower lobes with some areas of bronchial debris -mucous plugging, left greater th an right. AORTA AND GREAT VESSELS: No aneurysm. Contrast bolus not optimized for the aorta. HEART: No pericardial effusion. No significant coronary artery calcifications. PULMONARY ARTERIES: No emboli visualized in the main pulmonary arteries. Bolus timing and breathing motion artifact limit evaluation of the the segmental branches. HILAR AND MEDIASTINAL STRUCTURES: Similar enlarged nodes. HARDWARE: None in the chest. UPPER ABDOMEN: No acute findings. Similar left renal cyst. Limited exam. THYROID AND OTHER SOFT TISSUES: No masses. No adenopathy. BONES: No acute finding. 3D MIPS: Confirm above findings. OTHER: No other significant finding. IMPRESSION: Patchy airspace opacities are present in the both lower lobes with some areas of bronchi al debris -mucous plugging, left greater than right.No emboli visualized in the main pulmonary arteri es. Bolus timing and breathing motion artifact limit evaluation of the the segmental branches. COMMENT: Quality ID # [id number]: Final reports with documentation of one or more dose reduction techniques (e.g., Automated exposure control, adjustment of the mA and/or kV according to patient size, use of iterative reconstruction technique) TECHNICAL DOCUMENTATION: JOB ID: [id number] [place]-72 2010 [employer]- All Rights Reserved Reading location - IP/workstation name: [email or web address]
[2019-11-26] MEDS ORDERED: KETOROLAC TROMETHAMINE INJ/PF 30 MG/1 ML SDV IV ONE (16:52)
--- NOTE | 2019-11-26 17:04 | EKG REPORT ---
SEVERITY:- OTHERWISE NORMAL ECG - SINUS TACHYCARDIA LEFT AXIS DEVIATION : Confirmed by: Nahomi Moon MD 26-Nov-2019 17:04:07
[2019-11-26] MEDS ORDERED: CEFTRIAXONE 1 GM/D5W RTU 1 GM/50 ML RTUPB IV ONE (17:30)
[2019-11-26 19:04] VITALS: BP 127/81
[2019-11-26] MEDS ORDERED: AZITHROMYCIN 250 MG TABLET PO ONE (19:07)
[2019-11-26] MEDS ORDERED: ALBUTEROL SULFATE HFA (90 MCG/PUFF) 8 GM MDI (1 MDI/ER DISP) IH PRN (19:07)
== END 2019-11-26 19:47 | disposition home or self-care (01) ==
LOC: ER 12:08
DX: J18.1 Lobar pneumonia, unspecified organism (principal); R06.02 Shortness of breath; R00.0 Tachycardia, unspecified; E11.9 Type 2 diabetes mellitus without complications; Z79.84 Long term (current) use of oral hypoglycemic drugs
CPT/HCPCS: 93005; 94640; 99284; 96361; 96375; 96365; 96366; 36415; 87040; 83605; 85025; 80053; 81001; 87804; 71046; 71275; 93010; J1885; J7030; J0696; J3490; J7620

== ENCOUNTER 2020-08-17 22:40 | Emergency (ER) | payer OTHER, BC ==
[2020-08-18] MEDS ORDERED: ACETAMINOPHEN 325 MG TABLET PO ONE (03:40)
[2020-08-18] MEDS ORDERED: KETOROLAC TROMETHAMINE 60 MG/2 ML SDV IM ONE (04:46)
--- NOTE | 2020-08-18 04:56 | ER Document Report ---
ED General - General Chief Complaint: Low Back Pain Stated Complaint: BACK PAIN RADIATING DOWN RIGHT LEG Time Seen by Provider: 08/17/20 23:24 Primary Care Provider: EDYTA BUENO MD [Primary Care Provider] - Follow up in 3-5 days TRAVEL OUTSIDE OF THE [place] IN LAST 30 DAYS: No - HPI Notes: Patient is a 30-year-old male with a past medical history of chronic back pain and diabetes who presents with back pain. Patient states that symptoms began this morning. He has pain over his right low back that radiates down his right leg and feels sharp. Denies any trauma or injuries. No loss of bowel or bladder. No numbness or tingling. No fevers or chills. Patient does not use IV drugs. States he tried his normal medications of diclofenac and baclofen without relief. - Related Data Allergies/Adverse Reactions: No Known Drug Allergies Allergy (Verified 08/18/20 03:34) orange juice Allergy (Verified 08/18/20 03:34) bees Allergy (Uncoded 05/28/19 13:40) Home Medications: BACLOFEN. METFORMIN. DICLOFENAC Past Medical History - General Information source: Patient - Social History Smoking Status: Never Smoker Frequency of alcohol use: None Drug Abuse: None Family History: Arthritis, DM, Hypertension Pulmonary Medical History: Reports: Hx Pneumonia, Hx Sleep Apnea Endocrine Medical History: Reports: Hx Diabetes Mellitus Type 2 Renal/ Medical History: Denies: Hx Peritoneal Dialysis Musculoskeletal Medical History: Reports Hx Arthritis, Reports Hx Musculoskeletal Trauma Psychiatric Medical History: Reports: Hx Anxiety, Hx Attention Deficit Hyperactivity Disorder, Hx Depression Past Surgical History: Reports: Hx Orthopedic Surgery - Right knee medial meniscus repair/trimming - Immunizations Hx Diphtheria, Pertussis, Tetanus Vaccination: Yes Review of Systems - Review of Systems Notes: CONSTITUTIONAL: No fever, fatigue or weight loss. SKIN: No rash. HENT: No congestion, ear pain, or sore throat. EYES: No recent vision problems or eye pain. CARDIOVASCULAR: No chest pain or edema. RESPIRATORY: No cough, shortness of breath, congestion, or wheezing. GASTROINTESTINAL: No abdominal pain, nausea, vomiting, bloody stools or diarrhea. GENITOURINARY: No dysuria. MUSCULOSKELETAL: No joint pain or swelling. Positive for back pain. LYMPHATIC: No swollen glands. NEUROLOGIC: No seizures. No headache, focal weakness or sensory changes. HEMATOLOGIC: No unusual bruising or bleeding. PSYCHIATRIC: No depression or anxiety. Physical Exam - Vital signs Vitals: Temp Pulse Resp BP Pulse Ox 97.7 F 74 18 143/82 H 100 08/18/20 03:00 08/18/20 03:00 08/18/20 03:00 08/18/20 03:00 08/18/20 03:00 - General General appearance: Appears well Notes: VITAL SIGNS: Within normal limits. GENERAL: No acute distress, non-toxic appearance. HEAD: Normal with no signs of head trauma. EYES: EOMI, conjunctiva normal, no discharge. EARS: Hearing grossly intact. NOSE: Normal. NECK: Normal range of motion, no tenderness, supple, no lymphadenopathy, No adenopathy, no JVD. CHEST: Clear breath sounds bilaterally. No wheezes, rales, or rhonchi. CARDIAC: Regular rate and rhythm. S1 and S2, without murmurs, gallops, or rubs. VASCULAR: No Edema. ABDOMEN: Normal and soft with no tenderness, no masses or pulsatile masses. GENITOURINARY: Normal, No tenderness MUSCULOSKELETAL: Good range of motion of all major joints. Extremities without clubbing, cyanosis or edema. Discomfort with right straight leg raise and palpation of right piriformis. ROM and strength is normal bilaterally. NEUROLOGICAL: Alert and oriented x 3. No focal sensory or strength deficits. Speech normal. Follows commands appropriately. PSYCHIATRIC: Normal Affect, judgement and mood. SKIN: Normal appearance with no rashes or lesions. Course - Re-evaluation Re-evalutation: 08/18/20 20:49 Patient is playing on his phone and in no acute distress. Patient is presenting with an exacerbation of his chronic back pain. He denies any trauma. No saddle anesthesia, loss of bowel or bladder, any other concerning red flags. He will be given Toradol as he states that has worked for him in the past. He is already on baclofen. We will do a trial of a lidocaine patch at home. Patient is very agreeable to the plan. He will follow up with his family doctor. He was given strict return precautions. - Vital Signs Vital signs: Temp Pulse Resp BP Pulse Ox 97.9 F 76 18 138/76 H 100 08/18/20 05:00 08/18/20 05:00 08/18/20 05:00 08/18/20 05:00 08/18/20 05:00 Discharge - Discharge Clinical Impression: Back pain Qualifiers: Back pain location: low back pain Chronicity: acute Back pain laterality: right Sciatica presence: with sciatica Sciatica laterality: sciatica of right side Qualified Code(s): M54.41 - Lumbago with sciatica, right side Sciatica Qualifiers: Laterality: right Qualified Code(s): M54.31 - Sciatica, right side Condition: Stable Disposition: HOME, SELF-CARE Instructions: Low Back Pain ([facility]), Sciatica ([facility]) Additional Instructions: Make sure you are continuing your daily activities. You may use the diclofenac and baclofen you have as prescribed. You may use heat or cool compresses on the area. You will have a prescription for a lidocaine patch. Please follow-up with your family doctor. Return to the ER for any fevers, worsening pain, numbness, loss of bowel or bladder. Prescriptions: Lidocaine [Lidocaine Pain Relief] 1 each TP DAILY PRN #3 adh..patch PRN Reason: Forms: Return to Work Referrals: EDYTA BUENO MD [Primary Care Provider] - Follow up in 3-5 days
[2020-08-18 05:05] VITALS: BP 138/76
== END 2020-08-18 05:21 | disposition home or self-care (01) ==
LOC: ER 22:40
DX: M54.41 Lumbago with sciatica, right side (principal); G89.29 Other chronic pain; E11.9 Type 2 diabetes mellitus without complications
CPT/HCPCS: 99284; 96372; J1885